=== PATIENT | female | born 1970 | race African-American/Black ===

== ENCOUNTER 2016-06-11 15:17 | Emergency (ER) | payer SELFPAY ==
[~2016-06-11] VITALS: Ht 165.1 cm; Wt 88.0 kg
[~2016-06-11 15:17] MED LIST: ASPI325T PO; CYCL-36 PO; FERR324T4 PO
[2016-06-11 15:32] VITALS: BP 112/67; PULSE 90; RESP 18; TEMP 99.8; O2SAT 100
[2016-06-11] MEDS ORDERED: FERR325T PO ×2 (16:05→18:10)
[2016-06-11 16:23] LABS: MEAN CORPUSCULAR HGB CONC 28.3 % (32.0-36.0)
[2016-06-11 16:57] LABS: POTASSIUM 4.5 MEQ/L (3.5-5.1)
[2016-06-11 16:59] LABS: BICARBONATE 24.6 MEQ/L (21.0-32.0)
--- NOTE | 2016-06-11 17:00 | PD ---
HPI Chief Complaint: Skin Problem Time Seen by Provider: 16:14 Travel History International Travel<30 days: No Contact w/Intl Traveler<30days: No Traveled to known affect area: No History of Present Illness HPI So 45-year-old presents to the emergency room complaining of pain in her left arm started yesterday. She noticed palpable tender cord in the left arm. This is been worsening since yesterday. She otherwise has felt generally well. She has a history of severe anemia from menorrhagia. She states she's been having a little bit more dyspnea on exertion and shortness of breath. She thinks is probably from her anemia. She is taking her iron. She's had a blood clot in her left arm from a previous peripheral IV. She did 6 months of warfarin and this resolved. She's never had any other DVTs or PEs. History Past Medical History Narrative Medical Severe iron deficiency anemia related to menorrhagia Anemia History left upper extremity DVT Menopausal: Yes : 8 Para: 4 Dilation and Curettage (D&C): No Social History Alcohol Use: Yes (WEEKLY) Tobacco Use: Yes ( 1/2 pack a day for 32 years) Allergies-Medications (Allergen,Severity, Reaction): Coded Allergies: Cat Dander (Verified Allergy, Severe, Itching, 06/11/16) Codeine (Verified Allergy, Severe, Twitching, 06/11/16) Hydrocodone (Verified Allergy, Intermediate, itching, 06/11/16) Reported Meds & Prescriptions Reported Meds & Active Scripts Active Reported Ferrous Sulfate 325 Mg Tab 325 Mg PO DAILY Review of Systems Except as stated in HPI: all other systems reviewed are Neg Physical Exam Narrative GENERAL: Well-appearing 45-year-old woman, no acute distress. SKIN: Warm and dry. HEAD: Atraumatic. Normocephalic. EYES: Pupils equal and round. No scleral icterus. No injection or drainage. Marked conjunctival pallor. ENT: No nasal bleeding or discharge. Mucous membranes pink and moist. NECK: Trachea midline. No JVD. CARDIOVASCULAR: Regular rate and rhythm. No murmur appreciated. RESPIRATORY: No accessory muscle use. Clear to auscultation. Breath sounds equal bilaterally. GASTROINTESTINAL: Abdomen soft, non-tender, nondistended. Hepatic and splenic margins not palpable. MUSCULOSKELETAL: No obvious deformities. No obvious edema. She does have a tender palpable cord along the medial arm. NEUROLOGICAL: Awake and alert. No obvious cranial nerve deficits. Motor grossly within normal limits. Normal speech. PSYCHIATRIC: Appropriate mood and affect; insight and judgment normal. Data Data Last Documented VS Vital Signs Date Time Temp Pulse Resp B/P Pulse Ox O2 Delivery O2 Flow Rate FiO2 06/11/16 15:32 99.8 90 18 112/67 100 Orders Us Arm Venous Doppler (06/11/16 ) Complete Blood Count With Diff (06/11/16 16:22) Basic Metabolic Panel (Bmp) (06/11/16 16:22) Iv Access Insert/Monitor (06/11/16 16:22) Iron Sucrose Inj (Venofer Inj) (06/11/16 18:15) Labs Laboratory Tests Test 06/11/16 16:30 White Blood Count 4.4 TH/MM3 Red Blood Count 4.26 MIL/MM3 Hemoglobin 6.1 GM/DL Hematocrit 21.5 % Mean Corpuscular Volume 50.6 FL Mean Corpuscular Hemoglobin 14.3 PG Mean Corpuscular Hemoglobin 28.3 % Concent Red Cell Distribution Width 25.9 % Platelet Count 442 TH/MM3 Mean Platelet Volume 7.1 FL Neutrophils (%) (Auto) % CBC Comment AUTO DIFF Differential Total Cells 100 Counted Neutrophils % (Manual) 52 % Lymphocytes % 41 % Monocytes % 4 % Eosinophils % 2 % Basophils % 1 % Neutrophils # (Manual) 2.3 TH/MM3 Differential Comment FINAL DIFF MANUAL Platelet Estimate NORMAL Platelet Morphology Comment NORMAL Ovalocytes 1+ Sodium Level 141 MEQ/L Potassium Level 4.5 MEQ/L Chloride Level 110 MEQ/L Carbon Dioxide Level 24.6 MEQ/L Anion Gap 6 MEQ/L Blood Urea Nitrogen 13 MG/DL Creatinine 1.10 MG/DL Estimat Glomerular Filtration 65 ML/MIN Rate Random Glucose 91 MG/DL Calcium Level 8.0 MG/DL [facility] Medical Decision Making Medical Screen Exam Complete: Yes Emergency Medical Condition: Yes Interpretation(s) Ultrasound: Nonocclusive thrombus in the basilic vein. Labs: Hemoglobin 6.1. Differential Diagnosis DVT, chronic DVT, thrombophlebitis, menorrhagia, anemia, other Narrative Course Medical decision making INITIAL: 45-year-old woman with what seems to be thrombophlebitis in her basilic vein, make we'll possibly DVT, as well as marked anemia. We'll check labs, ultrasound, reassess. FINAL: Ultrasounds was nonocclusive superficial vein thrombosis. Recommend warm compresses. Full dose aspirin daily. He was 6.1 and patient with very chronic long-standing menorrhagia. She has finished her menstrual cycle 2 days ago. She is taking iron. Discussed transfusion versus IV iron versus by mouth iron. Patient is having some symptoms of lightheadedness and dyspnea on exertion. She is not bleeding now. Offered IV iron transfusion, continue oral iron. Thing to stay safest with way to go. Diagnosis Primary Impression: Anemia due to blood loss Additional Impression: Superficial venous thrombosis of arm Qualified Code: I82.612 - Superficial venous thrombosis of arm, left Additional Instructions: Continue iron 325 mg twice daily. Follow up with her primary doctor in the next one to 2 weeks. Use warm compresses to the area that sore on your arm. Take a full dose aspirin daily until you follow up with her primary doctor. Med/Other Pt SpecificInfo: Prescription(s) given Scripts Aspirin 325 Mg [id number] Mg PO DAILY #30 TAB Ref 0 Prov:Adolfo Ferguson MD 06/11/16 Ferrous Sulfate 325 Mg [id number] Mg PO BID 30 Days Ref 0 Prov:Adolfo Ferguson MD 06/11/16 Disposition: 01 DISCHARGE HOME Condition: Stable Adolfo Ferguson MD Jun 11, 2016 17:00
[2016-06-11 17:04] LABS: HEMATOCRIT 21.5 % (35.0-46.0); MEAN CELL VOLUME 50.6 FL (80.0-100.0); MEAN CORPUSCULAR HEMOGLOBIN 14.3 PG (27.0-34.0); PLATELET COUNT 442 TH/MM3 (150-450); RED BLOOD COUNT 4.26 MIL/MM3 (4.00-5.30); RED CELL DISTRIBUTION WIDTH 25.9 % (11.6-17.2); WHITE BLOOD COUNT 4.4 TH/MM3 (4.0-11.0)
[2016-06-11 17:08] LABS: HEMO FLAGS AUTO DIFF
[2016-06-11 17:47] LABS: BASOPHILS 1 % (0-2); EOSINOPHILS 2 % (0-4); NEUTROPHIL # MANUAL DIFF 2.3 TH/MM3 (1.8-7.7); OVALOCYTES 1+ (NORMAL); PLATELET ESTIMATE SMEAR NORMAL (NORMAL); PLATELET MORPHOLOGY NORMAL (NORMAL); POLYS (SEG NEUTROPHILS) 52 % (16-70); SCAN/DIFF FINAL DIFF MANUAL; WBC DIFF SAMPLE 100
--- NOTE | 2016-06-11 17:54 | RADHPO ---
EXAM DATE/TIME: 06/11/2016 17:27 [facility] COMPARISON: US ARM LEFT VENOUS DOPPLER, July 23, 2015, 9:46. INDICATIONS : Pain in left upper extremity. MEDICAL HISTORY : Uterine Fibroids. Hypertension. Asthma. Chronic anemia. SURGICAL HISTORY : Tonsillectomy. Tubal ligation. Oral surgery. Jn Angina surgery. ENCOUNTER: Subsequent ACUITY: 1 day PAIN SCORE: 5/10 LOCATION: Left arm. FINDINGS: There is nonocclusive thrombus in the left basilic vein. There is spontaneous flow documented in the brachial, cephalic, axillary, and subclavian veins. The vessels are compressible and augmentation r esponse is documented. No filling defects are seen. The flow is phasic with respiration. Direction of flow in the jugular vein is caudal. CONCLUSION: Nonocclusive thrombus in the left basilic vein. The remaining veins in the left upper extremity are p atent. Eyal Fox MD on June 11, 2016 at 17:51 Board Certified Radiologist. This report was verified electronically.
[2016-06-11] MEDS ORDERED: ASPI325T PO (18:10)
[2016-06-11 18:15] VITALS: BP 127/83; PULSE 88; RESP 16; O2SAT 99
[2016-06-11] MEDS ORDERED: IRON SUCROSE INJ 200 MG in SODIUM CHLORIDE 0.9% INJ 100 ML IV ONE (18:15)
[2016-06-11 19:52] VITALS: BP 130/70
== END 2016-06-11 19:54 | disposition home or self-care (01) ==
LOC: PHED 15:17
DX: D50.0 Iron deficiency anemia secondary to blood loss (chronic) (principal); I82.612 Acute embolism and thrombosis of superficial veins of left upper extremity
CPT/HCPCS: 80048; 85007; 85027; 93971; 96365; 99284; J1756

== ENCOUNTER 2016-09-26 17:35 | Emergency (ER) | payer SELFPAY ==
[~2016-09-26 17:35] MED LIST changes: -CYCL-36 PO; -FERR324T4 PO; +FERR325T PO
[2016-09-26 17:37] VITALS: BP 119/70; PULSE 106; RESP 20; TEMP 98; O2SAT 100
--- NOTE | 2016-09-26 17:46 | PD ---
Physical Exam Date Seen by Provider: Sep 26, 2016 Time Seen by Provider: 17:43 Data Data Last Documented VS Vital Signs Date Time Temp Pulse Resp B/P Pulse Ox O2 Delivery O2 Flow Rate FiO2 09/26/16 17:37 98.0 106 20 119/70 100 Room Air MDM Supervised Visit with LISET: No Narrative Course 46 YO right hand dominant F with complaint of pain and swelling of the inner aspect of the right elbow x ~36 hours. Denies known injury. Takes an ASA daily. Vitals reviewed. Patient seen in triage, awaiting bed placement. Portia Liriano Sep 26, 2016 17:46
[2016-09-26] MEDS ORDERED: FERR324T4 PO (17:57)
[2016-09-26 18:10] LABS: MEAN CORPUSCULAR HGB CONC 24.2 % (32.0-36.0)
[2016-09-26 18:23] LABS: BASOPHIL # 0.1 TH/MM3 (0-0.2); BASOPHIL % 1.2 % (0.0-2.0); EOSINOPHIL # 0.3 TH/MM3 (0-0.4); EOSINOPHIL % 2.3 % (0.0-4.0); HEMATOCRIT 25.6 % (35.0-46.0); LYMPH % 17.9 % (9.0-44.0); MEAN CELL VOLUME 50.2 FL (80.0-100.0); MEAN CORPUSCULAR HEMOGLOBIN 12.1 PG (27.0-34.0); MONO % 8.4 % (0.0-8.0); NEUT % 70.2 % (16.0-70.0); PLATELET COUNT 416 TH/MM3 (150-450); RED BLOOD COUNT 5.09 MIL/MM3 (4.00-5.30); RED CELL DISTRIBUTION WIDTH 26.1 % (11.6-17.2); WHITE BLOOD COUNT 11.3 TH/MM3 (4.0-11.0)
[2016-09-26 18:26] LABS: HEMO FLAGS AUTO DIFF
--- NOTE | 2016-09-26 18:51 | PD ---
HPI Chief Complaint: Medical Clearance Time Seen by Provider: 17:57 Travel History International Travel<30 days: No Contact w/Intl Traveler<30days: No Traveled to known affect area: No History of Present Illness HPI The patient was seen and examined in the presence of the nurse. This patient complains of 2 things. She has long-standing chronic severe anemia and is on iron therapy. She wanted her hemoglobin checked. She doesn't have insurance and never goes to a doctor and just comes to the ER when she has a medical issue. She also complains of a tender area in her right arm. No injury. She' s had superficial thrombosis in the past. She takes aspirin daily. Symptoms severity is mild to moderate. No alleviating factors. Duration 2 days regarding the arm pain PFSH Past Medical History AAA: No ADD: No ADHD: No Anemia: Yes Asthma: Yes (allergy related / allergic to cats ) Heart Rhythm Problems: No Cancer: No Cardiovascular Problems: Yes ("pooja angina sugery" ) High Cholesterol: No Chest Pain: No Cerebrovascular Accident: No Diminished Hearing: No Deep Vein Thrombosis: Yes (hx of (Left arm)) Endocrine: No Gastrointestinal Disorders: Yes Genitourinary: No Headaches: Yes Hypertension: Yes Immune Disorder: No Implanted Vascular Access Dvce: No Musculoskeletal: No Neurologic: Yes Psychiatric: No Reproductive: Yes ("fibroid cysts", heavy/large clotting while mesturating) Respiratory: No Migraines: Yes Seizures: No Sleep Apnea: No Tetanus Vaccination: > 5 Years Influenza Vaccination: No ?: Not Menopausal: Yes : 8 Para: 4 : 4 Ectopic : No Ovarian Cysts: Yes (fibroids on uterus) Dilation and Curettage (D&C): No Tubal Ligation: Yes (2000) Past Surgical History Abdominal Surgery: No AICD: No Cardiac Surgery: No Section: No Ear Surgery: No Endocrine Surgery: No Eye Surgery: No Genitourinary Surgery: No Gynecologic Surgery: Yes Hysterectomy: No Neurologic Surgery: No Oral Surgery: Yes Thoracic Surgery: No Tonsillectomy: Yes (1977) Other Surgery: Yes (pooja angina) Social History Alcohol Use: Yes (WEEKLY) Tobacco Use: Yes ( 1/2 pack a day for 32 years) Substance Use: No (PT DENIES) Allergies-Medications (Allergen,Severity, Reaction): Coded Allergies: Cat Dander (Verified Allergy, Severe, Itching, 09/26/16) Codeine (Verified Allergy, Severe, Twitching, 09/26/16) Hydrocodone (Verified Allergy, Intermediate, itching, 09/26/16) Reported Meds & Prescriptions Reported Meds & Active Scripts Active Aspirin 325 Mg Tab 325 Mg PO DAILY Reported Ferrous Sulfate DR (Ferrous Sulfate) 324 Mg Tabdr 325 Mg PO DAILY Review of Systems General / Constitutional: No: Fever Eyes: No: Visual changes HENT: No: Headaches Cardiovascular: No: Chest Pain or Discomfort Respiratory: No: Shortness of Breath Gastrointestinal: No: Abdominal Pain Genitourinary: Positive: Menorrhagia, No: Dysuria Musculoskeletal: Positive: Pain Skin: No Rash Neurologic: No: Weakness Psychiatric: No: Depression Endocrine: No: Polydipsia Hematologic/Lymphatic: No: Easy Bruising Physical Exam Narrative GENERAL: Well-nourished, well-developed patient in no apparent distress. SKIN: Focused skin assessment reveals no rash and nodules. Skin is Warm and dry. HEAD: Atraumatic. Normocephalic. EYES: Pupils equal and round. No scleral icterus. No injection or drainage. ENT: No nasal bleeding or discharge. Mucous membranes pink and moist. NECK: Trachea midline. No JVD. CARDIOVASCULAR: Regular rate and rhythm. No murmur appreciated. RESPIRATORY: No accessory muscle use. Clear to auscultation. Breath sounds equal bilaterally. GASTROINTESTINAL: Abdomen soft, non-tender, nondistended. Hepatic and splenic margins not palpable. MUSCULOSKELETAL: No obvious deformities. No clubbing. No cyanosis. No edema. Patient has a distinct tender palpable cord near the lateral epicondyle it's consistent with a superficial venous thrombosis. NEUROLOGICAL: Awake and alert. No obvious cranial nerve deficits. Motor grossly within normal limits. Normal speech. PSYCHIATRIC: Appropriate mood and affect; insight and judgment normal. Data Data Last Documented VS Vital Signs Date Time Temp Pulse Resp B/P Pulse Ox O2 Delivery O2 Flow Rate FiO2 09/26/16 17:59 98 17 09/26/16 17:37 98.0 119/70 100 Room Air Orders Complete Blood Count With Diff (09/26/16 18:09) Iv Access Insert/Monitor (09/26/16 18:09) Labs Laboratory Tests Test 09/26/16 18:10 White Blood Count 11.3 TH/MM3 Red Blood Count 5.09 MIL/MM3 Hemoglobin 6.2 GM/DL Hematocrit 25.6 % Mean Corpuscular Volume 50.2 FL Mean Corpuscular Hemoglobin 12.1 PG Mean Corpuscular Hemoglobin 24.2 % Concent Red Cell Distribution Width 26.1 % Platelet Count 416 TH/MM3 Mean Platelet Volume 8.4 FL Neutrophils (%) (Auto) 70.2 % Lymphocytes (%) (Auto) 17.9 % Monocytes (%) (Auto) 8.4 % Eosinophils (%) (Auto) 2.3 % Basophils (%) (Auto) 1.2 % Neutrophils # (Auto) 8.0 TH/MM3 Lymphocytes # (Auto) 2.0 TH/MM3 Monocytes # (Auto) 0.9 TH/MM3 Eosinophils # (Auto) 0.3 TH/MM3 Basophils # (Auto) 0.1 TH/MM3 CBC Comment AUTO DIFF MDM Medical Decision Making Medical Screen Exam Complete: Yes Emergency Medical Condition: Yes Medical Record Reviewed: Yes Differential Diagnosis DVT, superficial thrombosis, soft tissue injury Narrative Course I have reviewed the patient's electronic medical record. Patient's last hemoglobin here was 6.1 which was 4 months ago CBC today reveals a hemoglobin of 6.2, essentially stable She is not bleeding today She is on iron therapy Her right arm exam reveals a superficial venous thrombosis. We discussed ways to help with this including warm compresses and anti-inflammatories. She will be cautious for any bleeding especially on aspirin therapy. The patient was advised to follow up with their physician and return if they worsen. Diagnosis Primary Impression: Superficial venous thrombosis of arm Qualified Code: I82.611 - Superficial venous thrombosis of arm, right Additional Impression: Anemia Qualified Code: D64.9 - Anemia, unspecified type Additional Instructions: The patient was advised to follow up with their physician and return if they worsen. Med/Other Pt SpecificInfo: Other Disposition: 01 DISCHARGE HOME Condition: Stable Zain Maurice MD Sep 26, 2016 18:51
[2016-09-26 19:00] VITALS: BP 122/77; TEMP 97.8
[2016-09-26 19:27] LABS: KERATOCYTES 1+ (NORMAL); OVALOCYTES 1+ (NORMAL); PLATELET ESTIMATE SMEAR NORMAL (NORMAL); PLATELET MORPHOLOGY NORMAL (NORMAL); SCAN/DIFF AUTO DIFF CONFIRMED; TARGET CELLS 1+ (NORMAL); TEARDROP RBCS 1+ (NORMAL)
== END 2016-09-26 19:20 | disposition home or self-care (01) ==
LOC: NEPC 17:35
DX: I82.611 Acute embolism and thrombosis of superficial veins of right upper extremity (principal); D64.9 Anemia, unspecified
CPT/HCPCS: 85025; 99283

== ENCOUNTER 2016-09-28 14:58 | Inpatient (IN) | payer SELFPAY ==
[~2016-09-28] VITALS: Ht 165.1 cm; Wt 88.9 kg
[~2016-09-28 14:58] MED LIST changes: +FERR324T4 PO; -FERR325T PO
[2016-09-28 15:08] VITALS: BP 176/115; PULSE 98; RESP 16; TEMP 98.2; O2SAT 98
[2016-09-28 16:06] LABS: MEAN CORPUSCULAR HGB CONC 28.5 % (32.0-36.0)
[2016-09-28 16:30] LABS: AUTOMATED NEUTROPHIL # 3.3 TH/MM3 (1.8-7.7); BASOPHIL # 0.5 TH/MM3 (0-0.2); BASOPHIL % 7.4 % (0.0-2.0); HEMATOCRIT 23.3 % (35.0-46.0); LYMPH % 39.2 % (9.0-44.0); LYMPHOCYTE # 2.9 TH/MM3 (1.0-4.8); MEAN CELL VOLUME 52.4 FL (80.0-100.0); MEAN CORPUSCULAR HEMOGLOBIN 14.9 PG (27.0-34.0); MONO % 8.7 % (0.0-8.0); NEUT % 44.7 % (16.0-70.0); PLATELET COUNT 403 TH/MM3 (150-450); RED BLOOD COUNT 4.45 MIL/MM3 (4.00-5.30); RED CELL DISTRIBUTION WIDTH 34.4 % (11.6-17.2); WHITE BLOOD COUNT 7.3 TH/MM3 (4.0-11.0)
[2016-09-28] MEDS ORDERED: ACETAMINOPHEN/HYDROcodone 325 MG/5 MG TAB PO ONE (16:30)
--- NOTE | 2016-09-28 16:41 | PD ---
HPI Chief Complaint: Pain: Acute or Chronic Time Seen by Provider: 15:54 Travel History International Travel<30 days: No Contact w/Intl Traveler<30days: No Traveled to known affect area: No History of Present Illness HPI So 46-year-old woman who presents to the emergency department complaining of bilateral arm pain and swelling. Patient has a history of severe anemia related to menorrhagia. This is been ongoing for some time. She reports that it's never been "life-threatening" and so she's never had any she is uninsured and so she's never had any interventions for the menorrhagia. She's been transfused multiple times in the past. She's also one previous episode of left basilic/cephalic upper extremity thrombosis. She was treated with warfarin for 6 months. She has completed that. She was seen 2 days ago with right upper extremity pain tenderness and swelling and palpable cord in the arm and was diagnosed with superficial thrombophlebitis. Was instructed to use NSAIDs and warm compresses. She states she's had worsening pain in the right arm and then over the past day or 2 as develop worsening similar symptoms in the left arm in the same area. She states since her previous clot she's not had any similar episodes. She thinks her mom may have had blood clots in the past but she is not sure. No history of lower extremity DVTs. No other complaints. History Past Medical History Narrative Medical Anemia Heavy menstrual cycles Tetanus Vaccination: > 5 Years Influenza Vaccination: No LMP: TL- 5 DAYS AGO Menopausal: Yes : 8 Para: 4 Dilation and Curettage (D&C): No Social History Alcohol Use: Yes (WEEKLY) Tobacco Use: Yes ( 1/2 pack a day for 32 years) Allergies-Medications (Allergen,Severity, Reaction): Coded Allergies: Cat Dander (Verified Allergy, Severe, Itching, 09/28/16) Codeine (Verified Allergy, Severe, Twitching, 09/28/16) Hydrocodone (Verified Allergy, Intermediate, itching, 09/28/16) Reported Meds & Prescriptions Reported Meds & Active Scripts Active Aspirin 325 Mg Tab 325 Mg PO DAILY Reported Ferrous Sulfate DR (Ferrous Sulfate) 324 Mg Tabdr 325 Mg PO DAILY Review of Systems Except as stated in HPI: all other systems reviewed are Neg Physical Exam Narrative GENERAL: Well-appearing 46 year-old woman, no acute distress. SKIN: Focused skin assessment warm/dry. HEAD: Atraumatic. Normocephalic. EYES: Pupils equal and round. No scleral icterus. No injection or drainage. ENT: No nasal bleeding or discharge. Mucous membranes pink and moist. NECK: Trachea midline. No JVD. CARDIOVASCULAR: Systolic flow murmur. Regular rate and rhythm. RESPIRATORY: No accessory muscle use. Clear to auscultation. Breath sounds equal bilaterally. GASTROINTESTINAL: Abdomen soft, non-tender, nondistended. Hepatic and splenic margins not palpable. MUSCULOSKELETAL: No obvious deformities. She has palpable cord with tenderness and warmth on the medial aspect of both forearms with some swelling towards the mid medial forearm on both sides. There is no obvious edema or are marked asymmetry at this point. NEUROLOGICAL: Awake and alert. No obvious cranial nerve deficits. Motor grossly within normal limits. Normal speech. Data Data Last Documented VS Vital Signs Date Time Temp Pulse Resp B/P Pulse Ox O2 Delivery O2 Flow Rate FiO2 09/28/16 17:58 74 18 147/62 98 Room Air 09/28/16 15:08 98.2 Orders Us Arm Venous Doppler Bilat (09/28/16 ) Complete Blood Count With Diff (09/28/16 16:05) Basic Metabolic Panel (Bmp) (09/28/16 16:05) Act Partial Throm Time (Ptt) (09/28/16 16:05) Prothrombin Time / Inr (Pt) (09/28/16 16:05) Iv Access Insert/Monitor (09/28/16 16:05) Thyroid Stimulating Hormone (09/28/16 16:05) Acetamin-Hydrocod 325-5 Mg ([place] 5-325 (09/28/16 16:30) Oxycodone-Acetamin 5-325 Mg (Percocet (09/28/16 16:45) Ondansetron Odt (Zofran Odt) (09/28/16 16:45) Iron Sucrose Inj (Venofer Inj) (09/28/16 18:45) Admit To Inpatient (09/28/16 ) Vital Signs (Adult) Q4H (09/28/16 18:41) Activity Oob Ad Mary Grace (09/28/16 18:41) Diet Regular Basic (09/28/16 Dinner) Sodium Chloride 0.9% Flush (Ns Flush) (09/28/16 18:45) Sodium Chloride 0.9% Flush (Ns Flush) (09/28/16 21:00) Acetaminophen (Tylenol) (09/28/16 18:45) Ondansetron Inj (Zofran Inj) (09/28/16 18:45) Basic Metabolic Panel (Bmp) (09/29/16 06:00) Complete Blood Count With Diff (09/29/16 06:00) Naloxone Inj (Narcan Inj) (09/28/16 18:45) Docusate Sodium-Senna (Lauren-Colace) (09/28/16 21:00) Magnesium Hydroxide Liq (Milk Of Magnesi (09/28/16 18:45) Sennosides (Senokot) (09/28/16 18:45) Bisacodyl Supp (Dulcolax Supp) (09/28/16 18:45) Lactulose Liq (Lactulose Liq) (09/28/16 18:45) Inpatient Certification (09/28/16 ) Consult Hematology (09/28/16 ) Pathologist Smear Review (09/28/16 18:41) Iron/Tibc Profile (09/28/16 18:41) Ferritin (09/28/16 18:41) Ldh Serum (09/28/16 18:41) Haptoglobin (09/28/16 18:41) Heparin Infusion [id number] (09/28/16 18:41) Heparin-D5w Inj (Heparin-D5w Inj) (09/28/16 18:45) Act Partial Throm Time (Ptt) (09/28/16 18:41) Cbc No Diff, Includes Plts (09/28/16 18:41) Cbc No Diff, Includes Plts (10/01/16 06:00) Act Partial Throm Time (Ptt) (09/29/16 01:41) Occult Blood (Hemoccult) Stool (09/28/16 18:41) Admit Order (Ed Use Only) (09/28/16 ) Labs Laboratory Tests Test 09/28/16 16:20 White Blood Count 7.3 TH/MM3 Red Blood Count 4.45 MIL/MM3 Hemoglobin 6.6 GM/DL Hematocrit 23.3 % Mean Corpuscular Volume 52.4 FL Mean Corpuscular Hemoglobin 14.9 PG Mean Corpuscular Hemoglobin 28.5 % Concent Red Cell Distribution Width 34.4 % Platelet Count 403 TH/MM3 Mean Platelet Volume 6.9 FL Neutrophils (%) (Auto) 44.7 % Lymphocytes (%) (Auto) 39.2 % Monocytes (%) (Auto) 8.7 % Eosinophils (%) (Auto) 0.0 % Basophils (%) (Auto) 7.4 % Neutrophils # (Auto) 3.3 TH/MM3 Lymphocytes # (Auto) 2.9 TH/MM3 Monocytes # (Auto) 0.6 TH/MM3 Eosinophils # (Auto) 0.0 TH/MM3 Basophils # (Auto) 0.5 TH/MM3 CBC Comment AUTO DIFF Differential Total Cells 100 Counted Neutrophils % (Manual) 49 % Lymphocytes % 36 % Monocytes % 12 % Eosinophils % 3 % Neutrophils # (Manual) 3.6 TH/MM3 Differential Comment FINAL DIFF MANUAL Prothrombin Time 10.0 SEC Prothromb Time International 0.9 RATIO Ratio Activated Partial 23.8 SEC Thromboplast Time Sodium Level 143 MEQ/L Potassium Level 4.0 MEQ/L Chloride Level 109 MEQ/L Carbon Dioxide Level 24.4 MEQ/L Anion Gap 10 MEQ/L Blood Urea Nitrogen 11 MG/DL Creatinine 0.94 MG/DL Estimat Glomerular Filtration 77 ML/MIN Rate Random Glucose 107 MG/DL Calcium Level 8.1 MG/DL Thyroid Stimulating Hormone 0.469 uIU/ML 3rd Gen [facility] Medical Decision Making Medical Screen Exam Complete: Yes Emergency Medical Condition: Yes Interpretation(s) LABS: CBC remarkable for marked anemia with microcytic indices BMP is unremarkable TSH is normal Coags are unremarkable Ultrasound bilateral upper extremities: Bilateral upper extremity clot in basilic and brachial veins. Differential Diagnosis Menorrhagia, hypothyroidism, thrombophilia, other Narrative Course Medical decision making This a 46-year-old woman presents to the emergency department with a history of marked anemia from menorrhagia. Etiology may be related to previously identified intramural fibroid seen on ultrasound in 2015. I don't see any previous thyroid testing. In 2015 she also had nonocclusive thrombus in the cephalic vein in the basilic vein. She just finished her menstrual cycle now apparently has recurrent bilateral superficial venous thrombosis with possible deeper complement. We'll check bilateral venous ultrasounds, we'll repeat blood work. Hemoglobin was 6.2 previously. She is currently taking 2 iron tablets twice daily regularly. She may have some sort of thrombophilia. We'll also check her TSH. FINAL: 46 year-old woman with menorrhagia related to intramural fibroid and marked anemia. She is 46. Her mom had a hysterectomy she's not sure so were not sure when to expect menopause. She now has upper extremity clots again for the second time. Unclear she has some sort of thrombophilia. She'll need anticoagulation and is of course at risk for worsening severe bleeding. We'll place her on heparin, we'll give her IV iron infusion. She is not bleeding now. We'll plan on admission for evaluation by hematology and gynecology. Diagnosis Primary Impression: Acute deep vein thrombosis (DVT) of both upper extremities Additional Impressions: Menorrhagia Anemia Admitting Information Admitting Physician Requests: Adolfo Mendoza MD Sep 28, 2016 16:41
[2016-09-28 16:44] LABS: BICARBONATE 24.4 MEQ/L (21.0-32.0)
[2016-09-28 16:45] LABS: APTT (PATIENT) 23.8 SEC (24.3-30.1); INTERNATIONAL NORMALIZED RATIO 0.9 RATIO
[2016-09-28] MEDS ORDERED: oxyCODONE/ACETAMINOPHEN 5 MG/325 MG TAB PO ONE (16:45)
[2016-09-28] MEDS ORDERED: ONDANSETRON ODT 4 MG TAB PO ONE (16:45)
[2016-09-28 16:49] LABS: HEMO FLAGS AUTO DIFF
[2016-09-28 17:06] LABS: EOSINOPHILS 3 % (0-4); NEUTROPHIL # MANUAL DIFF 3.6 TH/MM3 (1.8-7.7); POLYS (SEG NEUTROPHILS) 49 % (16-70); WBC DIFF SAMPLE 100
[2016-09-28 17:07] LABS: SCAN/DIFF FINAL DIFF MANUAL
[2016-09-28 17:58] VITALS: BP 147/62; PULSE 74; RESP 18; O2SAT 98
--- NOTE | 2016-09-28 18:23 | RADRPT ---
EXAM DATE/TIME: 09/28/2016 16:36 [facility] COMPARISON: No previous studies available for comparison. INDICATIONS : Bilateral arm swelling. MEDICAL HISTORY : Hypertension. Chronic obstructive pulmonary disease. Headache. Migraine. Deep vein thrombosis. As thma. Dyspnea. Ovarian cyst. SURGICAL HISTORY : Tonsillectomy.Tubal ligation. ENCOUNTER: Initial ACUITY: 1 week PAIN SCORE: 8/10 LOCATION: Bilateral arms. FINDINGS: RIGHT UPPER EXTREMITY: There is nonocclusive thrombus in the right brachial vein. There appears to be occlusive thrombus in the right basilic vein. There is spontaneous flow documented in the cephalic, axillary, and subclavia n veins. Direction of flow in the jugular vein is caudal. LEFT UPPER EXTREMITY: There is nonocclusive thrombus in the left brachial vein. There appears to be occlusive thrombus in t he left basilic vein. There is spontaneous flow documented in the cephalic, axillary, and subclavian veins. Direction of flow in the jugular vein is caudal. CONCLUSION: Thrombus in the brachial and basilic veins bilaterally. Eyal Fox MD on September 28, 2016 at 18:18 Board Certified Radiologist. This report was verified electronically.
[2016-09-28] MEDS ORDERED: SENNOSIDES 8.6 MG TAB PO PRN (18:45)
[2016-09-28] MEDS ORDERED: BISACODYL 10 MG SUPP RECTAL PRN (18:45)
[2016-09-28] MEDS ORDERED: IRON SUCROSE INJ 200 MG in SODIUM CHLORIDE 0.9% INJ 100 ML IV ONE (18:45)
[2016-09-28] MEDS ORDERED: MAGNESIUM HYDROXIDE SUSP 30 ML CUP PO PRN (18:45)
[2016-09-28] MEDS ORDERED: ONDANSETRON HCL 4 MG/2 ML VIAL IVP PRN (18:45)
[2016-09-28] MEDS ORDERED: ACETAMINOPHEN 325 MG TAB PO PRN (18:45)
[2016-09-28] MEDS ORDERED: SODIUM CHLORIDE 0.9% FLUSH 10 ML FLUSH IV FLUSH PRN (18:45)
[2016-09-28] MEDS ORDERED: NALOXONE HCL 0.4 MG/ML AMP IV PRN (18:45)
[2016-09-28 19:09] VITALS: BP 155/73; PULSE 74; RESP 18; O2SAT 97
[2016-09-28] MEDS: SODIUM CHLORIDE 0.9% FLUSH 10 ML FLUSH IV FLUSH SCH (19:23)
[2016-09-28 20:05] LABS: LDH SERUM 248 U/L (84-246); TRANSFERRIN IRON PROFILE 346 MG/DL (200-360)
[2016-09-28 20:08] LABS: FERRITIN 7 NG/ML (8-252)
[2016-09-28] MEDS: HEPARIN-D5W INJ 250 ML IV SCH (21:04)
[2016-09-28 21:07] LABS: MEAN CORPUSCULAR HGB CONC 27.6 % (32.0-36.0)
[2016-09-28 21:15] VITALS: BP 149/89; PULSE 63; RESP 18; TEMP 96.5; O2SAT 100
[2016-09-28 21:24] VITALS: BP_SYST 146; BP_DIAS 0; BP_DIAS 80; PULSE 67; RESP 16; O2SAT 96
[2016-09-28] MEDS: DOCUSATE SODIUM 50 MG/SENNA 8.6 MG TAB PO SCH (22:02)
[2016-09-28] MEDS ORDERED: TEMAZEPAM 7.5 MG CAP PO ONE (22:45)
[2016-09-28] MEDS: oxyCODONE/ACETAMINOPHEN 5 MG/325 MG TAB PO PRN (23:02)
--- NOTE | 2016-09-28 23:49 | HHI.HP ---
HPI Service [facility] Primary Care Physician No Primary Care Physician Admission Diagnosis bilateral upper extremity DVT, anemia Diagnoses: Chief Complaint: Both arms pain and swelling. Travel History International Travel<30 Days: No Contact w/Intl Traveler <30 Da: No Traveled to Known Affected Are: No History of Present Illness This is a delayed entry. Patient was seen around 7pm on 09/28/2016. Ms. Lyle is a pleasant 46 year old female with history of menometrorrhagia, iron deficiency anemia, upper extremity thrombosis who presents to the ED on 09/28/2016 due to bilateral arm pain and swelling. On Tuesday or Tuesday (09/25 or 09/26/2016), patient noticed right upper ext superficial thrombophlebitis. She was advised to apply warm compression and use NSAIDs. However, she started having worsening pain on both upper extremities above elbow. She reports no chest pain, shortness of breath, fever, or chills. She was previously treated with warfarin for 6 months for left basilic/cephalic upper ext thrombosis. She reports no history of PE or lower ext DVT. Denies recent surgery, long distance travel or any history of cancer. ED workup on 2016 indicates bilateral upper ext DVT in the basilic and brachial veins. Additionally, patient's hemoglobin was 6.6. However, she reports no fatigue, chest pain, shortness of breath. She normally has low hemoglobin. She is taking Iron supplements twice a day with vitamin C. However, she does not follow up with any physician due to lack of insurance. Patient denies any hematemesis or hematochezia. Her stool is dark due to iron supplement. However, stool is formed and not like tar. She has a long history of menometrorrhagia. She has not been evaluated by any Lathe Machinist with regards to her menometrorrhagia. Review of Systems Except as stated in HPI: all other systems reviewed are Neg Past Family Social History Past Medical History Menometrorrhagia Iron deficiency anemia Upper extremity DVT Past Surgical History Surgery due to Jn's angina Tonsillectomy Tubal Ligation Reported Medications Aspirin 325 Mg Tab 325 Mg PO DAILY Ferrous Sulfate DR (Ferrous Sulfate) 324 Mg Tabdr 325 Mg PO DAILY Allergies: Coded Allergies: Cat Dander (Verified Allergy, Severe, Itching, 09/28/16) Codeine (Verified Allergy, Severe, Twitching, 09/28/16) Hydrocodone (Verified Allergy, Intermediate, itching, 09/28/16) Family History Patient smokes - recently about 10 cigs per 5 days. Drinks beer socially. No illicit drugs. Social History No history of sickle cell disease. Mother - Hypertension, diabetes. Physical Exam Vital Signs Vital Signs Date Time Temp Pulse Resp B/P Pulse Ox O2 Delivery O2 Flow Rate FiO2 09/28/16 21:24 67 16 146/80 96 Room Air 09/28/16 21:15 96.5 63 18 149/89 100 09/28/16 19:09 74 18 155/73 97 Room Air 09/28/16 17:58 74 18 147/62 98 Room Air 09/28/16 15:08 98.2 98 16 176/115 98 Physical Exam GENERAL: This is a well-nourished, well-developed patient, in no apparent distress. SKIN: No rashes, ecchymoses or lesions. Warm and dry. HEAD: Atraumatic. Normocephalic. No temporal or scalp tenderness. EYES: Pupils equal round and reactive. No injection or drainage. ENT: Nose without bleeding, purulent drainage or septal hematoma. Airway patent. NECK: Trachea midline. No lymphadenopathy. Supple, nontender, no meningeal signs. CARDIOVASCULAR: Regular rate and rhythm without murmurs, gallops, or rubs. No JVD. RESPIRATORY: Clear to auscultation. Breath sounds equal bilaterally. No wheezes , rales, or rhonchi. GASTROINTESTINAL: Abdomen soft, non-tender, nondistended. No guarding. MUSCULOSKELETAL: Extremities without clubbing, cyanosis, or edema. NEUROLOGICAL: Awake and alert. Cranial nerves II through XII intact. No focal neurological deficits. Normal speech. Laboratory Laboratory Tests Test 09/28/16 09/28/16 09/28/16 16:20 20:00 20:16 White Blood Count 7.3 Red Blood Count 4.45 Hemoglobin 6.6 Hematocrit 23.3 Mean Corpuscular Volume 52.4 Mean Corpuscular Hemoglobin 14.9 Mean Corpuscular Hemoglobin 28.5 Concent Red Cell Distribution Width 34.4 Platelet Count 403 Mean Platelet Volume 6.9 Neutrophils (%) (Auto) 44.7 Lymphocytes (%) (Auto) 39.2 Monocytes (%) (Auto) 8.7 Eosinophils (%) (Auto) 0.0 Basophils (%) (Auto) 7.4 Neutrophils # (Auto) 3.3 Lymphocytes # (Auto) 2.9 Monocytes # (Auto) 0.6 Eosinophils # (Auto) 0.0 Basophils # (Auto) 0.5 CBC Comment AUTO DIFF Differential Total Cells 100 Counted Neutrophils % (Manual) 49 Lymphocytes % 36 Monocytes % 12 Eosinophils % 3 Neutrophils # (Manual) 3.6 Differential Comment FINAL DIFF MANUAL Prothrombin Time 10.0 Prothromb Time International 0.9 Ratio Activated Partial 23.8 28.0 Thromboplast Time Sodium Level 143 Potassium Level 4.0 Chloride Level 109 Carbon Dioxide Level 24.4 Anion Gap 10 Blood Urea Nitrogen 11 Creatinine 0.94 Estimat Glomerular Filtration 77 Rate Random Glucose 107 Calcium Level 8.1 Iron Level 11 Total Iron Binding Capacity 484 Percent Iron Saturation 2.3 Ferritin 7 Lactate Dehydrogenase 248 Thyroid Stimulating Hormone 0.469 3rd Gen Haptoglobin 168 Result Diagram: 09/28/16 1620 09/28/16 1620 Imaging Last Impressions Upper Extremity Ultrasound 09/28/16 0000 Signed Impressions: Service Date/Time: Wednesday, September 28, 2016 16:36 - CONCLUSION: Thrombus in the brachial and basilic veins bilaterally. Eyal Fox MD Assessment and Plan Problem List: (1) Acute deep vein thrombosis (DVT) of both upper extremities ICD Code: I82.623 Status: Acute (2) Menometrorrhagia ICD Code: N92.1 Status: Acute (3) Iron deficiency anemia ICD Code: D50.9 Status: Acute Assessment and Plan Ms. Lyle, Anne-Marie is a pleasant female with a history of menometrorrhagia, previous upper ext DVT who presented to the ED due to worsening upper extremity pain and swelling. ED work up indicated bilateral upper extremity DVT. She was also found to have anemia with hemoglobin of 6.6 without any acute symptoms which indicates iron deficiency is a chronic condition likely due to menometrorrhagia. Unfortunately, patient has not been able to follow up with physicians including hematology or fishing lure assembler due to lack of insurance. - Acute deep vein thrombosis of the upper extremities - Patient has a history of upper ext DVT for which she was on warfarin for 6 months. - While 3 months of anti-coagulation would be appropriate, this is patient's second episode which appears to be unprovoked. - Patient may benefit from indefinite anticoagulation and outpatient hypercoagulable work up . - Will start heparin drip without bolus, Consult Hematology. - Chronic iron deficiency anemia - Menometrorrhagia - Iron deficiency anemia is likely due to menorrhagia. - Will order LDH, haptoglobin, Iron panels. - Since patient is asymptomatic, we will hold off transfusing PRBCs. - Iron panels later in the evening shows severe iron deficiency with increased TIBC and low iron saturation (2.3%). - Patient will likely need periodic Iron infusion due to lack of response from oral Iron supplement. - Hematology consult pending. - Gynecology consulted to get an evaluation for menometrorrhagia Full code. Heparin drip. Physician Certification 2 Midnight Certification Type: Admission for Inpatient Services Order for Inpatient Services The services are ordered in accordance with Medicare regulations or non- Medicare payer requirements, as applicable. In the case of services not specified as inpatient-only, they are appropriately provided as inpatient services in accordance with the 2-midnight benchmark. Estimated LOS (days): 2 days is the estimated time the patient will need to remain in the hospital, assuming treatment plan goals are met and no additional complications. Post-Hospital Plan: Home Rosa Velazquez DO Sep 28, 2016 23:49
[2016-09-29] VITALS (14 sets, daily range): BP systolic 132–175; BP diastolic 66–82; PULSE 52–70; RESP 15–22; TEMP 87.5–99.1; O2SAT 98–100
[2016-09-29 03:46] LABS: APTT (PATIENT) 76.2 SEC (24.3-30.1)
[2016-09-29 06:28] LABS: AUTOMATED NEUTROPHIL # 2.6 TH/MM3 (1.8-7.7); BASOPHIL # 0.2 TH/MM3 (0-0.2); BASOPHIL % 3.3 % (0.0-2.0); EOSINOPHIL # 0.3 TH/MM3 (0-0.4); LYMPH % 42.6 % (9.0-44.0); LYMPHOCYTE # 2.6 TH/MM3 (1.0-4.8); MEAN CELL VOLUME 52.8 FL (80.0-100.0); MEAN CORPUSCULAR HEMOGLOBIN 14.6 PG (27.0-34.0); MONO % 7.7 % (0.0-8.0); NEUT % 41.4 % (16.0-70.0); PLATELET COUNT 343 TH/MM3 (150-450); RED BLOOD COUNT 4.33 MIL/MM3 (4.00-5.30); RED CELL DISTRIBUTION WIDTH 34.3 % (11.6-17.2); WHITE BLOOD COUNT 6.2 TH/MM3 (4.0-11.0)
[2016-09-29 06:37] LABS: POTASSIUM 4.3 MEQ/L (3.5-5.1)
[2016-09-29 06:40] LABS: BICARBONATE 26.8 MEQ/L (21.0-32.0)
[2016-09-29 07:02] LABS: HEMATOCRIT 22.9 % (35.0-46.0); HEMO FLAGS AUTO DIFF
[2016-09-29 07:19] LABS: EOSINOPHILS 2 % (0-4); NEUTROPHIL # MANUAL DIFF 2.9 TH/MM3 (1.8-7.7); POLYS (SEG NEUTROPHILS) 46 % (16-70); WBC DIFF SAMPLE 100
[2016-09-29 07:20] LABS: KERATOCYTES OCC (NORMAL); OVALOCYTES 1+ (NORMAL)
[2016-09-29 07:21] LABS: PLATELET ESTIMATE SMEAR NORMAL (NORMAL); PLATELET MORPHOLOGY NORMAL (NORMAL); ROULEAUX PRESENT (NORMAL); SCAN/DIFF FINAL DIFF MANUAL
[2016-09-29] MEDS: oxyCODONE/ACETAMINOPHEN 5 MG/325 MG TAB PO PRN ×3 (08:14→20:16)
[2016-09-29] MEDS: DOCUSATE SODIUM 50 MG/SENNA 8.6 MG TAB PO SCH ×2 (08:15→21:24)
[2016-09-29] MEDS: SODIUM CHLORIDE 0.9% FLUSH 10 ML FLUSH IV FLUSH SCH ×2 (08:15→21:24)
--- NOTE | 2016-09-29 11:43 | PD.RAD ---
Post Procedure Progress Note Pre Procedure Diagnosis: (1) DVT of upper extremity (deep vein thrombosis) Post Procedure Diagnosis: (1) DVT of upper extremity (deep vein thrombosis) Procedure Date: Sep 29, 2016 Supervising Radiologist: Toni Jacobo Proceduralist/Assist: RT Taco(R) Anesthesia: Local Plan of Activity Patient to Unit: Nursing Unit Patient Condition: Good See PACS Report for procedural detail/treatment Central Venous Access Device Procedure 1 Right Internal Jugular Central Line Placement triple lumen Toni Jacobo MD Sep 29, 2016 11:43
[2016-09-29] MEDS ORDERED: SODIUM CHLORIDE 0.9% FLUSH 10 ML FLUSH IVF PRN (11:45)
[2016-09-29] MEDS: HEPARIN-D5W INJ 250 ML IV SCH ×3 (12:20→14:33)
[2016-09-29 13:01] LABS: APTT (PATIENT) 34.8 SEC (24.3-30.1)
--- NOTE | 2016-09-29 15:11 | HHI.PR ---
Subjective Remarks Patient reports she is feeling okay. Still having mild shortness of breath. No chest pain, no lightheadedness. Objective Vitals Vital Signs Date Time Temp Pulse Resp B/P Pulse Ox O2 Delivery O2 Flow Rate FiO2 09/29/16 14:55 97.5 67 21 141/73 100 09/29/16 14:18 98.3 63 22 175/82 100 09/29/16 13:03 60 154/67 100 09/29/16 13:00 98.5 65 18 175/72 100 09/29/16 12:46 98.4 66 18 158/69 100 09/29/16 12:22 99.1 59 15 143/66 98 09/29/16 10:04 98.0 57 18 141/68 98 09/29/16 08:35 97.2 67 15 137/73 99 09/29/16 00:00 97.2 62 18 132/72 99 09/28/16 21:24 67 16 146/80 96 Room Air 09/28/16 21:15 96.5 63 18 149/89 100 09/28/16 19:09 74 18 155/73 97 Room Air 09/28/16 17:58 74 18 147/62 98 Room Air 09/28/16 15:08 98.2 98 16 176/115 98 I/O 09/28/16 09/28/16 09/28/16 09/29/16 09/29/16 09/29/16 07:00 15:00 23:00 07:00 15:00 23:00 Intake Total 340 ml 120 ml 480 ml Output Total 0 ml Balance 340 ml 120 ml 480 ml Intake Oral 240 ml 120 ml 480 ml IV Total 100 ml Output Stool Total 0 ml # Voids 0 1 1 # Bowel Movements 0 0 Result Diagram: 09/29/16 0522 09/29/16 0522 Imaging Last Impressions Upper Extremity Ultrasound 09/28/16 0000 Signed Impressions: Service Date/Time: Wednesday, September 28, 2016 16:36 - CONCLUSION: Thrombus in the brachial and basilic veins bilaterally. Eyal Fox MD Objective Remarks GENERAL: This is a well-nourished, well-developed patient, in no apparent distress. CARDIOVASCULAR: Normal rate and regular rhythm without murmurs, gallops, or rubs. RESPIRATORY: Good respiratory efforts. Breath sounds equal and clear to auscultation bilaterally. GASTROINTESTINAL: Abdomen soft, non-tender, non-distended. Normal active bowel sounds MUSCULOSKELETAL: Extremities without cyanosis, or edema. NEURO: Alert & Oriented x4 to person, place, time, situation. Moves all ext x4 PSYCH: Appropriate mood and affect. A/P Problem List: (1) Acute deep vein thrombosis (DVT) of both upper extremities ICD Code: I82.623 Status: Acute (2) Menometrorrhagia ICD Code: N92.1 Status: Acute (3) Iron deficiency anemia ICD Code: D50.9 Status: Acute Assessment and Plan 46-year-old female with a history of menometrorrhagia, previous upper ext DVT who presented to the ED due to worsening upper extremity pain and swelling. ED work up indicated bilateral upper extremity DVT. She was also found to have anemia with hemoglobin of 6.6 without patient has known menometrorrhagia. Unfortunately, patient has not been able to follow up with physicians including hematology or educational aid due to lack of insurance. - Acute deep vein thrombosis of the upper extremities - Patient has a history of upper ext DVT for which she was on warfarin for 6 months. - While 3 months of anti-coagulation may be appropriate, this is patient's second episode which appears to be unprovoked. - Patient may benefit from indefinite anticoagulation and outpatient hypercoagulable work up . -Continue heparin drip without bolus, hematology consulted. Chronic iron deficiency anemia - May benefit from iron infusion versus oral replacement after surgery. Hematology consulted. PRBC transfusion today. Follow-up H&H. Menometrorrhagia - Given the patient's persistent anemia and recurrent DVT. She will need to be anticoagulated. AUTOMATION MECHANIC was consulted to consider hysterectomy. Full code. Heparin drip. Maria Esther Rodriguez MD Sep 29, 2016 15:11
--- NOTE | 2016-09-29 16:56 | MB ---
cc: Erika WHITE MD DATE OF CONSULTATION 09/29/2016 HISTORY OF PRESENT ILLNESS Ms. Lyle is a 46-year-old black female para 3-1-4-4 who is being seen for a DVT in the upper extremities but I am being consulted for heavy bleeding and severe anemia. The bleeding is quite heavy. She is having normal periods that are lasting 7-10 days. She is changing pads every 20 minutes when it is the heaviest. She has been having this problem for quite some time. She has never really had a workup for the menomenorrhagia, but now it is to the point where she is chronically anemic with a hemoglobin in the 6 range. She also came into the emergency room several days ago and was diagnosed with superficial thrombophlebitis, but they came back and was found to have some deep venous thrombosis of the upper extremity. She is currently on heparin and is anticoagulated. Brought her in to the hospital thinking we will go ahead and get an ultrasound All night and she was brought her into the hospital being will go ahead and get an ultrasound and possibly a D&C hysteroscope and endometrial ablation. She denies any nosebleeds, bleeding when she brushes her teeth, melena, hematochezia, hematuria or easy bruising. OB HISTORY Her past OB history she is para 3-1-4-4. She had four NSVDs without complications. CHEMICAL CHECKER HISTORY She states she had a Pap smear last year and it was normal. She has had a tubal ligation. PAST SURGICAL HISTORY Her past surgical history is remarkable for: 1. Tubal ligation. 2. Oral surgery. 3. Tonsillectomy. 4. I&D of an abscess. PAST MEDICAL HISTORY Remarkable for: 1. Chronic anemia. 2. Menometrorrhagia. SOCIAL HISTORY She uses alcohol socially. She smokes one-half pack per day. She denies any substance abuse. FAMILY HISTORY Noncontributory. MEDICATIONS Her current medication is: Iron one p.o. daily. ALLERGIES CODEINE WHICH CAUSES TWITCHING. SHE IS ALSO ALLERGIC TO CAT DANDER. REVIEW OF SYSTEMS She denies any headache or dizziness when she stands. RESPIRATORY: She is having some mild shortness of breath, especially when moving around a lot. CARDIOVASCULAR: She denies any chest pain or chest pressure. GASTROINTESTINAL: She denies any melena, hematochezia, diarrhea, constipation. GENITOURINARY: She states she has very heavy periods which totally drain her. She denies any micturition problems or hematuria. NEUROLOGIC: She is awake and alert. She is without any problems. PSYCHIATRIC: She has appropriate mood and affect. PHYSICAL EXAMINATION GENERAL: Reveals a well-nourished, well-developed female in no acute distress, resting comfortably on the gurney. VITAL SIGNS: Her blood pressure is 141/73. Her pulse oximetry is 100%. Her respiratory rate is 21. Her pulse is 67. Her temperature is 97.5. HEENT: Normocephalic, atraumatic. Her conjunctiva are very pale. In general she looks pale. CHEST: Her chest is clear to auscultation. CARDIOVASCULAR: Her heart has regular rate and rhythm without significant murmur. ABDOMEN: Her abdomen is soft and nontender. There is no hepatosplenomegaly. There are no masses. PELVIC: The pelvic exam external genitalia is normal. The vagina is clean without lesions. The cervix was not visualized but there is no cervical motion tenderness. The uterus is normal size, shape and consistency and freely mobile. The adnexa was negative for masses. EXTREMITIES: No clubbing, cyanosis or edema. ASSESSMENT/PLAN 1. Menomenorrhagia. I looked at her records back at least to 2013. She has been severely anemic since then. She has had this heavy bleeding but not had it addressed. I would take the liberty to order an ultrasound and if that is normal I would strongly consider taking her to the operating room for a D&C, hysteroscopic exam and endometrial ablation. I am unsure at this time whether we need to stop the heparin for such a minor procedure but I will look into that. We will follow up later today and check her ultrasound. 2. Deep venous thrombosis. I will talk to the oncologist in the very near future about this, whether it is safe for her to go off heparin for a couple of hours or not. I did not see a bleeding diathesis workup in the charts previously, however, it is certainly may be there. 3. Status post D&C in March of 2015. Pathology is negative. I think our best bet at this time is to take her to the operating room for a repeat D&C, hysteroscopy and strongly consider endometrial ablation. R. Eyal White MD RJV/KK /4:01 PM 4:25 PM
[2016-09-29 21:07] LABS: MEAN CORPUSCULAR HGB CONC 27.2 % (32.0-36.0)
--- NOTE | 2016-09-29 21:20 | RADRPT ---
EXAM DATE/TIME: 09/29/2016 20:18 [facility] COMPARISON: US PELVIS - COMPLETE (CHILI POWDER MIXER,NON-PREG), March 19, 2015, 16:17. INDICATIONS : Heavy bleeding. MEDICAL HISTORY : Deep venous thrombosis. Spine deterioration. Disk degeneration. Fibroids. Menorrhagia. Asthma. SURGICAL HISTORY : Tubal ligation. Tonsillectomy. Jn angina. ENCOUNTER: Initial ACUITY: 3 months PAIN SCORE: 0/10 LOCATION: Bilateral pelvis MEASUREMENTS: UTERUS: 10.3 x 6.5 x 6.5 cm ENDOMETRIAL STRIPE: 3 mm LEFT OVARY: 2.9 x 2.1 x 1.7 cm FINDINGS: There is a 6.9 x 5 x 5.2 cm solid mass in the uterine fundus characteristic of fibroid which is incre ased from previous measurement of 4.8 x 3.8 x 4 cm in February 2015. There is a 1.1 cm left ovarian cyst. Right ovary not visualized. No free fluid. CONCLUSION: 1. 6.9 cm uterine fibroid, increased in size from comparison exam in February 2015. 2. Small left ovarian cyst. Right ovary not visualized. Colin Davis MD on September 29, 2016 at 21:15 Board Certified Radiologist. This report was verified electronically.
[2016-09-29] MEDS: ZOLPIDEM TARTRATE 5 MG TAB PO PRN (21:25)
[2016-09-30] VITALS: BP 146/86; PULSE 71; RESP 17; TEMP 97.3; O2SAT 99
[2016-09-30] MEDS: oxyCODONE/ACETAMINOPHEN 5 MG/325 MG TAB PO PRN ×4 (00:10→21:37)
[2016-09-30] MEDS: SODIUM CHLORIDE 0.9% FLUSH 10 ML FLUSH IV FLUSH SCH ×2 (00:12→09:00)
[2016-09-30 03:08] LABS: APTT (PATIENT) 57.4 SEC (24.3-30.1)
[2016-09-30 04:00] VITALS: BP 98/71; PULSE 61; RESP 17; TEMP 96.5; O2SAT 98
[2016-09-30 05:41] LABS: HEMATOCRIT 31.6 % (35.0-46.0); MEAN CELL VOLUME 55.7 FL (80.0-100.0); MEAN CORPUSCULAR HEMOGLOBIN 15.1 PG (27.0-34.0); PLATELET COUNT 622 TH/MM3 (150-450); RED BLOOD COUNT 5.67 MIL/MM3 (4.00-5.30); RED CELL DISTRIBUTION WIDTH 39.2 % (11.6-17.2); WHITE BLOOD COUNT 9.3 TH/MM3 (4.0-11.0)
[2016-09-30 05:49] LABS: REVIEW FLAG FINAL
[2016-09-30 06:00] LABS: BICARBONATE 29.3 MEQ/L (21.0-32.0); POTASSIUM 4.5 MEQ/L (3.5-5.1)
[2016-09-30 08:00] VITALS: BP 157/83; PULSE 59; RESP 16; TEMP 96.6; O2SAT 100
--- NOTE | 2016-09-30 08:12 | HHI.PR ---
Subjective Remarks Follow-up for bilateral upper extremity DVT, iron deficiency anemia, menometrorrhagia. Patient is currently doing well. Denies any chest pain, shortness of breath, fever or chills. Patient was transferred from [place] to [facility] for possible D&C by CAUSTIC STRENGTH INSPECTOR. Objective Vitals Vital Signs Date Time Temp Pulse Resp B/P Pulse Ox O2 Delivery O2 Flow Rate FiO2 09/30/16 08:00 96.6 59 16 157/83 100 09/30/16 04:00 96.5 61 17 98/71 98 09/30/16 00:00 97.3 71 17 146/86 99 09/29/16 20:00 97.5 70 17 143/72 99 09/29/16 16:57 87.5 68 18 139/74 98 09/29/16 16:47 97.1 65 18 141/78 98 09/29/16 16:00 98.0 52 18 152/77 100 09/29/16 14:55 97.5 67 21 141/73 100 09/29/16 14:18 98.3 63 22 175/82 100 09/29/16 13:03 60 154/67 100 09/29/16 13:00 98.5 65 18 175/72 100 09/29/16 12:46 98.4 66 18 158/69 100 09/29/16 12:22 99.1 59 15 143/66 98 09/29/16 10:04 98.0 57 18 141/68 98 09/29/16 08:35 97.2 67 15 137/73 99 I/O 09/29/16 09/29/16 09/29/16 09/30/16 09/30/16 09/30/16 07:00 15:00 23:00 07:00 15:00 23:00 Intake Total 120 ml 480 ml 600 ml Output Total 0 ml Balance 120 ml 480 ml 600 ml Intake Oral 120 ml 480 ml 600 ml Output Stool Total 0 ml # Voids 1 1 2 # Bowel Movements 0 Result Diagram: 09/30/16 0500 09/30/16 0500 Imaging Last Impressions Pelvis Ultrasound 09/29/16 0000 Signed Impressions: Service Date/Time: Thursday, September 29, 2016 20:18 - CONCLUSION: 1. 6.9 cm uterine fibroid, increased in size from comparison exam in February 2015. 2. Small left ovarian cyst. Right ovary not visualized. Colin Davis MD Upper Extremity Ultrasound 09/28/16 0000 Signed Impressions: Service Date/Time: Wednesday, September 28, 2016 16:36 - CONCLUSION: Thrombus in the brachial and basilic veins bilaterally. Eyal Fox MD Objective Remarks GENERAL: Alert, oriented 3, NAD. SKIN: Warm and dry. HEAD: Normocephalic. EYES: No scleral icterus. No injection or drainage. NECK: Supple, trachea midline. No JVD or lymphadenopathy. CARDIOVASCULAR: Regular rate and rhythm without murmurs, gallops, or rubs. RESPIRATORY: Breath sounds equal bilaterally. No accessory muscle use. GASTROINTESTINAL: Abdomen soft, non-tender, nondistended. MUSCULOSKELETAL: No cyanosis, or edema. BACK: Nontender without obvious deformity. No CVA tenderness. Procedures None A/P Problem List: (1) Acute deep vein thrombosis (DVT) of both upper extremities ICD Code: I82.623 Status: Acute (2) Menometrorrhagia ICD Code: N92.1 Status: Acute (3) Iron deficiency anemia ICD Code: D50.9 Status: Acute Assessment and Plan 46-year-old female with a history of menometrorrhagia, previous upper ext DVT who presented to the ED due to worsening upper extremity pain and swelling. ED work up indicated bilateral upper extremity DVT. She was also found to have anemia with hemoglobin of 6.6 without patient has known menometrorrhagia. Unfortunately, patient has not been able to follow up with physicians including hematology or head silverman due to lack of insurance. - Acute deep vein thrombosis of the upper extremities - Patient has a history of upper ext DVT for which she was on warfarin for 6 months. - Discussed with Dr. Chau (Hematology) who recommends heparin for now then oral anticoagulants for 3 months then chronic therapy with half the dose of oral anticoagulant. Chronic iron deficiency anemia - Patient received 2 units of PRBCs. Hematology recommends IV iron infusion. Menometrorrhagia - Given the patient's persistent anemia and recurrent DVT. She will need to be anticoagulated. - CAUSTIC STRENGTH INSPECTOR is considering D&C, possibly today or tomorrow. Full code. Heparin drip. Discussed with Dr. Chau and Dr. White. Rosa Velazquez DO Sep 30, 2016 8:12 am
[2016-09-30] MEDS: DOCUSATE SODIUM 50 MG/SENNA 8.6 MG TAB PO SCH ×2 (09:00→21:36)
[2016-09-30] MEDS: SODIUM CHLORIDE 0.9% FLUSH 10 ML FLUSH IVF SCH (09:00)
[2016-09-30] MEDS ORDERED: ONDANSETRON HCL 4 MG/2 ML VIAL IV PUSH ONE (09:30)
[2016-09-30] MEDS ORDERED: PROPOFOL 200 MG/20 ML AMP IV ONE (09:30)
[2016-09-30] MEDS ORDERED: PHENYLEPH/NS 1000 MCG/10 ML SYR IV ONE (09:30)
[2016-09-30] MEDS ORDERED: LACTATED RINGER'S 1000 ML INJ 1,000 ML IV ONE (09:31)
[2016-09-30] MEDS: HEPARIN-D5W INJ 250 ML IV SCH (10:01)
--- NOTE | 2016-09-30 10:53 | MB ---
cc: OTONIEL DANIELLE DATE OF CONSULTATION: 09/30/2016 REASON FOR CONSULTATION 1. Anemia associated with menstrual bleeding and iron deficiency. 2. Bilateral venous thrombosis upper extremities. PATIENT PROFILE The patient is a 46-year-old black female. She has never been . She has four sons. She was [place] in [place]. She has lived in [place] for 30 years. She is currently not working. 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 She has smoked half a pack of cigarettes per day for many years, although recently has decreased tobacco use. She has approximately two beers a day. There is no use of recreational drugs. HISTORY OF PRESENT ILLNESS The patient has had longstanding history of heavy menstrual bleeding. At some point she was given IV iron for her bleeding. The patient has a history of upper extremity venous thrombosis. On 05/01/2014 she had a thrombus identified in the basilic vein in the left arm as well as a nonocclusive thrombus in the cephalic vein. The axillary vein and jugular vein were present at that time. She recollects having an IV in place and this was probably the precipitating event. She was given Lovenox and then took Coumadin for 3 months. Coumadin was discontinued in part due to the fact that she was having worsening menstrual bleeding. On 07/23/2015, she had evaluation for left upper extremity pain and at that time there was no evidence of venous thrombosis within the left upper extremity. She has been on aspirin for prevention of recurrent venous thrombosis. The months prior on June 11, 2016, she did have a nonocclusive thrombosis in the left basilic vein. Whether or not this is new or old is unclear to me in reviewing the records. Approximately 5 days ago she developed swelling initially in the right arm. She states that she saw a physician and was told to continue aspirin, use nonsteroidal anti-inflammatory medications and warm soaks. She did as requested and within the past day or two developed swelling of the left arm. There was no precipitating event, there was no injury to either upper extremities. She was not doing any heavy lifting or lifting her arms above her head. She is not taking any estrogen replacements. There is no family history of any thromboembolic disease and there has essentially been no change in her health other than increasing weakness and mild shortness of breath associated with anemia with her hemoglobin being 6.2 on 09/26/2016. On 09/28/2016, she had bilateral ultrasounds of the upper extremities. The right upper extremity shows nonocclusive thrombus in the right brachial vein. There appears to be occlusive thrombus in the right basilic vein. There is spontaneous flow documented in the cephalic, axillary and subclavian veins. In the left upper extremity there is nonocclusive thrombus in the left brachial vein. There appears to be occlusive thrombus in the left basilic vein. There is spontaneous flow documented in the cephalic, axillary and subclavian veins. This is the first time she has had thrombus in the right arm. As per the ultrasound dated 05/01/2014 which reads ultrasound Doppler left arm which showed thrombus and on 06/11/2016 she again had evidence of thrombus in the left basilic vein and we now have thrombus in the contralateral side for the first time occurring on aspirin. PAST SURGICAL HISTORY 1. Tonsillectomy. 2. Tubal ligation. 3. Surgery are of lower jaw for Jn's angina. MEDICATIONS PRIOR TO ADMISSION 1. Aspirin 325 mg a day. 2. Iron sulfate 325 mg two pills twice a day, at one point her physicians asked her to take six pills a day. ALLERGIES CODEINE. FAMILY HISTORY There is no history of any hypercoagulable disorder. Mother is living. She does not know anything about her father. She has a sister and brother who are well and no one has had any thromboembolic disease. PAST MEDICAL HISTORY Past medical history includes: 1. Venous thrombosis as described above. 2. Chronic heavy menstrual bleeding. REVIEW OF SYSTEMS CONSTITUTIONAL: She is well except for fatigue and mild exertional shortness of breath associated with her anemia. No change in vision or hearing. No chest pain, palpitations. RESPIRATORY: Minimal exertional shortness of breath. GI: Stools are dark from the oral iron but no blood. : Notable for menstrual periods lasting for approximately 5 days every month. She will use in excess of 12 pads for 2 or 3 days associated with it. MUSCULOSKELETAL: No bone pain. NEUROLOGIC: No weakness. PSYCHIATRIC: No depression. LABORATORY STUDIES On 09/28, hemoglobin 6.6, white count 7300, platelets 403,000, MCV is 52, RDW was 34. Iron is 11, TIBC 484, saturations 2%, ferritin is 7, LDH is 248, BUN 12, creatinine is 1.1. IMAGING STUDIES Other than the ultrasound of the upper extremities, include a pelvic ultrasound on 09/29/2016 showing a 7 cm solid mass in the uterine fundus characteristic of a fibroid which has increased in size. PHYSICAL EXAM: afebrile, pulse 90, rr 18, patient appears well HEENT normal no cervical, supraclavicular axillary or inguinal adenopathy Breasts : no masses Heart: reg rhythm. no murmur or gallop Lungs : clear ABD: no tenderness, no enlargement of liver or spleen. Extrem. lower extremities: normal. upper Extremities: painful venous cords along the medial forearms bilaterally consistent with thrombosis of basilic veins. mild swelling and tenderness of forearms bilaterally. SKIN: normal Neurologic: normal Psychiatric: normal ASSESSMENT/PLAN 1: Iron deficiency anemia secondary to menstrual blood loss. I am going to give the patient approximately 1800 mg of IV iron and this will allow her to make at least 6 units of blood. I have spoken with Dr. White and he will do a D and C to decrease the bleeding. Heparin can be held for the procedure and resume several hours later if bleeding not problematic. 2:The bilateral upper extremity venous thrombosis is poorly explained. Her first venous thrombosis which occurred on 05/01/2014 involving the left arm was probably related to an IV. She recollects having an IV in the arm. The current one nvolving the right arm is not well explained. Her history is not suggestive of a hypercoagulable disorder. For the moment I would continue heparin. On discharge I would like her take one of the new oral anticoagulants, either Xarelto 20 mg a day or apixaban 5 mg twice a day. I would like this to be maintained for at least 3 months and if she is doing well then I would recommend continuing anticoagulation, but using either apixaban 2.5 mg twice a day or rivaroxaban 10 mg once a day. This is effective in decreasing the risk of further thrombosis. It carries no increased risk of bleeding when compared with the use of aspirin, and given her age and the necessity of possible lifetime anticoagulation, I would want to try to pick a dose which has a very low risk of hemorrhage over a long period of time. In terms of evaluating the etiology of the thrombosis, I am not sure we are going to come up with an answer. The first blood clot in the left arm may have predisposed her to further clotting in the same arm, but does not explain what happened in the right arm. I have spoken with Dr. Davis (radiology) and I am ordering a special arterial/venous study of the venous structures to the arms, to see if there is an anatomical abnormality. I expect that the study will be normal but I believe it is worthwhile doing. I have ordered a partial evaluation for a hypercoagulable state, looking at tests which will not be affected by the immediate thrombosis or heparin. She will have a beta-2 glycoprotein, cardiolipin antibodies, factor V Leiden, lupus anticoagulate, phosphatidylserine antibodies and a prothrombin gene mutation. I am not going to do protein S, protein C, antithrombin III, given that she is on heparin and has an acute clot. The situation has been discussed with Dr. White. If there is a significant drop in hemoglobin then without hesitation I would give her blood as it will take a while for the iron to work. She has a H&H for tomorrow. It is imperative that we stop the bleeding. MD JESSICA Pace/CHAS /9:36 AM /10:10 AM MTDAguilar
[2016-09-30 12:00] VITALS: BP 134/69; PULSE 60; RESP 18; TEMP 97.1; O2SAT 98
[2016-09-30] MEDS ORDERED: IRON DEXTRAN 100 MG/2 ML VIAL IV ONE ×2 (13:15→14:00)
[2016-09-30] MEDS ORDERED: diphenhydrAMINE HCL 25 MG CAP PO ONE (14:30)
[2016-09-30] MEDS ORDERED: FAMOTIDINE 20 MG TAB PO ONE (14:30)
[2016-09-30] MEDS ORDERED: DEXAMETHASONE SOD PHOS 20 MG/5 ML VIAL IV ONE (14:40)
[2016-09-30] MEDS ORDERED: IRON DEXTRAN IV ONE (15:00)
[2016-09-30] MEDS ORDERED: SODIUM CHLORID 0.9% IV ONE (15:00)
[2016-09-30] MEDS ORDERED: IOHEXOL 350 MG/ML 10 ML VIAL (for RAD DIAG) IV ONE (15:59)
[2016-09-30 16:00] VITALS: BP 141/80; PULSE 56; RESP 18; TEMP 97; O2SAT 99
--- NOTE | 2016-09-30 17:42 | RADRPT ---
EXAM DATE/TIME: 09/30/2016 15:38 [facility] COMPARISON: No previous studies available for comparison. INDICATIONS : Evaluate for venous thrombosis. IV CONTRAST: 90 cc Omnipaque 350 (iohexol) IV ; Cumulative dose for multiple exams. RADIATION DOSE: 10.40 CTDIvol (mGy) ; Combined studies MEDICAL HISTORY : Cardiovascular disease. Hypertension. DVT in left arm, menometrorrhagia, Jn angina. SURGICAL HISTORY : Tubal ligation. ENCOUNTER: Initial ACUITY: 2 days PAIN SCALE: 3/10 LOCATION: Bilateral upper arm. TECHNIQUE: Volumetric scanning was performed using a multirow detector CT scanner. Using automated exposure cont rol and adjustment of the mA and/or kV according to patient size, radiation dose was kept as low as r easonably achievable to obtain optimal diagnostic quality images. The data was post processed with a variety of visualization algorithms including full-volume maximum intensity projection, multiplanar sliding thin-slab reformation, curved-planar reformation, and surface-rendering techniques. Using au tomated exposure control and adjustment of the mA and/or kV according to patient size, radiation dose was kept as low as reasonably achievable to obtain optimal diagnostic quality images. DICOM format image data is available electronically for review and comparison. FINDINGS: Examination was performed primarily to evaluate for extent of upper extremity DVTs and as noted on re cent ultrasound exam with thrombus in the brachial and basilic veins bilaterally. Unfortunately, desp ite significant the delayed scanning, the upper extremity veins are not visualized and the exam is es sentially in the arterial phase for the upper extremities. The central venous structures are visualiz ed. Both internal jugular veins are visualized and appear patent. The confluence of the internal jugu lar veins and the brachiocephalic veins are also visualized and appear patent. The external jugular v eins are also patent. There is standard 3 vessel arch anatomy. The right brachiocephalic, subclavian, axilla, brachial, uln ar, and radial arteries are patent. The right common carotid artery is patent. The left common caroti d artery is patent. The left subclavian, axillary, brachial, ulnar, and radial arteries are patent. Visualized soft tissues demonstrate numerous bilateral subcentimeter axillary nodes which do not meet CT size criteria. Thyroid appears unremarkable by CT. Visualized lung apices are clear. Visualized o sseous structures are intact without evidence for acute fracture or focal lytic or blastic bony lesio ns. CONCLUSION: 1. Nondiagnostic CTV examination in this patient with history of suspected extensive bilateral upper extremity DVTs, as above. The central jugular veins to the junction of the brachiocephalic veins are patent. The subclavian and more peripheral veins are not adequately opacified for evaluation. 2. Normal CT angiography of the upper extremities with widely patent proximal arch vessels. Ez Iglesias MD on September 30, 2016 at 17:23 Board Certified Radiologist. This report was verified electronically.
[2016-09-30] MEDS ORDERED: ACETAMINOPHEN 1000 MG/100 ML VIAL IV ONE (18:04)
[2016-09-30] MEDS ORDERED: MIDAZOLAM HCL 2 MG/2 ML VIAL ONE (18:06)
--- NOTE | 2016-09-30 18:34 | EKG ---
Date Performed: 09/29/2016 Time Performed: 20:26:24 PTAGE: 46 years EKG: Sinus rhythm WITH SINUS ARRHYTHMIA POSSIBLE ANTERIOR MYOCARDIAL INFARCTION , OF INDETERMINATE AGE Compared to pre vious tracing, the inferior T wave changes are new, but there's otherwise no significant serial guerrero e ABNORMAL ECG PREVIOUS TRACING : 07/01/2015 10.50 DOCTOR: Cira Ku Interpretating Date/Time 09/30/2016 18:32:54
[2016-09-30] MEDS ORDERED: DO NOT ADM ANY ANTICOAGULANT DRUGS PRN (19:28)
[2016-09-30 20:00] VITALS: BP 121/68; PULSE 69; RESP 18; TEMP 97; O2SAT 95
[2016-09-30] MEDS ORDERED: MORPHINE SULFATE 4 MG/ML INJ ONE (20:00)
[2016-09-30 21:00] LABS: MEAN CORPUSCULAR HGB CONC 26.6 % (32.0-36.0)
[2016-10-01] VITALS (7 sets, daily range): BP systolic 100–151; BP diastolic 50–89; PULSE 55–75; RESP 16–18; TEMP 96.7–98.8; O2SAT 92–100
[2016-10-01] MEDS: ZOLPIDEM TARTRATE 5 MG TAB PO PRN ×2 (00:13→20:31)
[2016-10-01] MEDS: oxyCODONE/ACETAMINOPHEN 5 MG/325 MG TAB PO PRN ×4 (02:50→16:13)
[2016-10-01 05:57] LABS: HEMATOCRIT 31.1 % (35.0-46.0); MEAN CELL VOLUME 56.6 FL (80.0-100.0); MEAN CORPUSCULAR HEMOGLOBIN 15.1 PG (27.0-34.0); PLATELET COUNT 671 TH/MM3 (150-450); RED CELL DISTRIBUTION WIDTH 39.7 % (11.6-17.2); WHITE BLOOD COUNT 11.8 TH/MM3 (4.0-11.0)
[2016-10-01 05:58] LABS: REVIEW FLAG FINAL
[2016-10-01 06:05] LABS: APTT (PATIENT) 64.1 SEC (24.3-30.1)
[2016-10-01] MEDS: HEPARIN-D5W INJ 250 ML IV SCH ×2 (07:49→23:22)
[2016-10-01] MEDS: DOCUSATE SODIUM 50 MG/SENNA 8.6 MG TAB PO SCH ×2 (07:50→20:04)
--- NOTE | 2016-10-01 08:07 | HHI.PR ---
Subjective Remarks Follow up for menometrorrhagia, bilateral upper ext DVT. Patient is currently doing well. She underwent gynecological surgical intervention yesterday. No acute concerns at this point. No fever, chills. Objective Vitals Vital Signs Date Time Temp Pulse Resp B/P Pulse Ox O2 Delivery O2 Flow Rate FiO2 10/01/16 04:00 97.2 68 18 111/60 97 10/01/16 00:00 96.9 75 18 100/50 92 09/30/16 20:15 72 16 148/71 96 Nasal Cannula 3 09/30/16 20:00 97.0 69 18 121/68 95 09/30/16 20:00 74 16 152/77 97 Nasal Cannula 3 09/30/16 19:45 74 14 153/79 97 Nasal Cannula 3 09/30/16 19:30 98.6 77 14 150/83 100 Nasal Cannula 3 09/30/16 16:00 97.0 56 18 141/80 99 09/30/16 12:00 97.1 60 18 134/69 98 I/O 09/30/16 09/30/16 09/30/16 10/01/16 10/01/16 10/01/16 07:00 15:00 23:00 07:00 15:00 23:00 Intake Total 600 ml 840 ml 150 ml Output Total 240 ml Balance 600 ml 840 ml -90 ml Intake Oral 600 ml 840 ml Other 150 ml Output Urine Total 200 ml Estimated Blood Loss 40 ml # Voids 2 2 1 # Bowel Movements 0 Result Diagram: 10/01/16 0420 09/30/16 0500 Imaging Last Impressions Upper Extremity CTA 09/30/16 0000 Signed Impressions: Service Date/Time: September 15:38 - CONCLUSION: 1. Nondiagnostic CTV examination in this patient with history of suspected extensive bilateral upper extremity DVTs, as above. The central jugular veins to the junction of the brachiocephalic veins are patent. The subclavian and more peripheral veins are not adequately opacified for evaluation. 2. Normal CT angiography of the upper extremities with widely patent proximal arch vessels. Ez Iglesias MD Pelvis Ultrasound 09/29/16 0000 Signed Impressions: Service Date/Time: Thursday, September 29, 2016 20:18 - CONCLUSION: 1. 6.9 cm uterine fibroid, increased in size from comparison exam in February 2015. 2. Small left ovarian cyst. Right ovary not visualized. Colin Davis MD Upper Extremity Ultrasound 09/28/16 0000 Signed Impressions: Service Date/Time: Wednesday, September 28, 2016 16:36 - CONCLUSION: Thrombus in the brachial and basilic veins bilaterally. Eyal Fox MD Objective Remarks GENERAL: Alert, oriented 3, NAD. SKIN: Warm and dry. HEAD: Normocephalic. EYES: No scleral icterus. No injection or drainage. NECK: Supple, trachea midline. No JVD or lymphadenopathy. CARDIOVASCULAR: Regular rate and rhythm without murmurs, gallops, or rubs. RESPIRATORY: Breath sounds equal bilaterally. No accessory muscle use. GASTROINTESTINAL: Abdomen soft, non-tender, nondistended. MUSCULOSKELETAL: No cyanosis, or edema. BACK: Nontender without obvious deformity. No CVA tenderness. Procedures None A/P Problem List: (1) Acute deep vein thrombosis (DVT) of both upper extremities ICD Code: I82.623 Status: Acute (2) Menometrorrhagia ICD Code: N92.1 Status: Acute (3) Iron deficiency anemia ICD Code: D50.9 Status: Acute Assessment and Plan 46-year-old female with a history of menometrorrhagia, previous upper ext DVT who presented to the ED due to worsening upper extremity pain and swelling. ED work up indicated bilateral upper extremity DVT. She was also found to have anemia with hemoglobin of 6.6 without patient has known menometrorrhagia. Unfortunately, patient has not been able to follow up with physicians including hematology or manager export due to lack of insurance. - Acute deep vein thrombosis of the upper extremities - Patient has a history of upper ext DVT for which she was on warfarin for 6 months. - Discussed with Dr. Chau (Hematology) who recommends heparin for now then oral anticoagulants for 3 months then chronic therapy with half the dose of oral anticoagulant. - Anticoagulation with probably Apixaban 5mg BID for 3 months then 2.5mg BID. Chronic iron deficiency anemia - Patient received 2 units of PRBCs. - Hematology will provide Iron infusion. Discussed with Dr. Chau. Menometrorrhagia - Given the patient's persistent anemia and recurrent DVT. She will need to be anticoagulated. - DRUM STENCILER performed surgical intervention yesterday - possibly D&C and endometrial ablation. Op note not available yet. Full code. Heparin drip. Discussed with Dr. Chau. Possible discharge on 10/02/2016. Rosa Velazquez DO Oct 01, 2016 8:07 am
[2016-10-01] MEDS: SODIUM CHLORIDE 0.9% FLUSH 10 ML FLUSH IVF SCH (11:32)
[2016-10-01] MEDS: SODIUM CHLORIDE 0.9% FLUSH 10 ML FLUSH IV FLUSH SCH ×2 (11:32→20:02)
[2016-10-01] MEDS: LACTULOSE SYRUP 20 GM/30 ML CUP PO PRN (11:34)
[2016-10-01 11:46] LABS: APTT (PATIENT) 83.3 SEC (24.3-30.1)
--- NOTE | 2016-10-01 11:47 | PD.ONC.PN ---
Subjective Subjective Remarks Afebrile overnight. Patient resting in bed in nad. Some improvement in the swelling in right arm. Objective Data Date Time Temp Pulse Resp B/P Pulse Ox O2 Delivery O2 Flow Rate FiO2 10/01/16 08:30 98.2 55 18 151/74 98 10/01/16 04:00 97.2 68 18 111/60 97 10/01/16 00:00 96.9 75 18 100/50 92 09/30/16 20:15 72 16 148/71 96 Nasal Cannula 3 09/30/16 20:00 97.0 69 18 121/68 95 09/30/16 20:00 74 16 152/77 97 Nasal Cannula 3 09/30/16 19:45 74 14 153/79 97 Nasal Cannula 3 09/30/16 19:30 98.6 77 14 150/83 100 Nasal Cannula 3 09/30/16 16:00 97.0 56 18 141/80 99 09/30/16 12:00 97.1 60 18 134/69 98 Result Diagram: 10/01/16 0420 09/30/16 0500 Laboratory Results Laboratory Tests Test 10/01/16 04:20 White Blood Count 11.8 TH/MM3 Red Blood Count 5.50 MIL/MM3 Hemoglobin 8.3 GM/DL Hematocrit 31.1 % Mean Corpuscular Volume 56.6 FL Mean Corpuscular Hemoglobin 15.1 PG Mean Corpuscular Hemoglobin 26.6 % Concent Red Cell Distribution Width 39.7 % Platelet Count 671 TH/MM3 Mean Platelet Volume 9.3 FL Activated Partial 64.1 SEC Thromboplast Time Administered Medications Medications (Trade) Dose Ordered Sig/Patricia Route PRN Reason Start Time Stop Time Status Last Admin Dose Admin Sodium Chloride (NS Flush) 2 ml BID IV FLUSH 09/28/16 21:00 10/01/16 11:32 Senna/Docusate Sodium (Lauren-Colace) 1 tab BID PO 09/28/16 21:00 09/30/16 21:36 Lactulose 30 ml 30 ml DAILY PRN PO SEVERE CONSITIPATION 09/28/16 18:45 10/01/16 11:34 Heparin Sodium/ Dextrose (Heparin-D5W Inj) 250 ml @ 0 mls/hr TITRATE IV 09/28/16 18:45 10/01/16 07:49 Sodium Chloride (NS Flush) DAILY IVF 09/30/16 09:00 10/01/16 11:32 Oxycodone/ Acetaminophen (Percocet 5-325 Mg) 1 tab Q4H PRN PO PAIN 1-10 09/29/16 20:15 10/01/16 11:31 Zolpidem Tartrate (Ambien) 5 mg HS PRN PO INSOMNIA 09/29/16 20:15 10/01/16 00:13 Objective Remarks GENERAL: Middle aged female upright in bed in nad. SKIN: Warm and dry. HEAD: Normocephalic. EYES: No injection or drainage. EXTREMITIES: some swelling in the right forearm, some basilic vein tenderness. MUSCULOSKELETAL: Adequate muscle tone. NEUROLOGICAL: awake and alert, normal speech. Assessment/Plan Assessment 46y/o female with JACE and BUE venous thrombosis Plan 1. iron dextran 1800mg IV will be given today--was held yesterday d/t surgery. 2. face sheet faxed to new patient referrals for follow up with Dr. Chau in three weeks time 3. continue heparin gtt. Would d/c home on Apixaban. Attending Statement The exam, history, and the medical decision-making described in the above note were completed with the assistance of the mid-level provider. I reviewed and agree with the findings presented. I attest that I had a [id number] encounter with the patient on the same day, and personally performed and documented my assessment and findings in the medical record. she is doing well and forearms left swollen and cord in forearm softer and less tender. will transfuse iron and can go home tomorrow on apixiban 5 mg bid or xarelto 20 mg a day with outpatient follow up. Marina Vásquez Oct 01, 2016 11:47 Geovanny Chau MD Oct 01, 2016 20:07
[2016-10-01] MEDS ORDERED: IRON DEXTRAN IV ONE (12:00)
[2016-10-01] MEDS ORDERED: SODIUM CHLORID 0.9% IV ONE (12:00)
[2016-10-01] MEDS ORDERED: IRON DEXTRAN 100 MG/2 ML VIAL IV ONE (12:00)
[2016-10-01] MEDS ORDERED: oxyCODONE/ACETAMINOPHEN 5 MG/325 MG TAB PO ONE (14:30)
--- NOTE | 2016-10-01 18:01 | MP ---
cc: Erika WHITE MD DATE OF SURGERY 09/30/16 PREOPERATIVE DIAGNOSIS 1. Severe metromenorrhagia. 2. Severe anemia, requiring transfusion. POSTOPERATIVE DIAGNOSIS 3. Severe metromenorrhagia. 4. Severe anemia, requiring transfusion. 5. Enlarged globular uterus. PROCEDURE Examination under anesthesia, dilation and curettage of the uterus, hysteroscopic exam and an attempted NovaSure endometrial ablation. ANESTHESIA General. SURGEON Jeremy White MD FINDINGS Examination under anesthesia, vagina was clean. The cervix was clean. The os was opened proximally 3 mm. The uterus was globular, enlarged. The adnexa was negative for any masses. The hysteroscopic exam revealed an enlarged endometrial cavity which sounded to 10 cm. It was quite wide at the fundus. There was no polyps or submucous myomas present. The D&C revealed a moderate amount of tissue. The endometrial ablation was attempted for approximately 45 minutes without success. COMPLICATIONS None. COUNTS Correct. ESTIMATED BLOOD LOSS Minimal. DISPOSITION The patient tolerated the procedure well and went to recovery room in good condition. PROCEDURE IN DETAIL The patient was taken to the operating room identified by name band and verbally after being off her heparin for approximately 4 hours. She was given a general anesthetic and prepped and draped in the usual sterile fashion for vaginal surgery. A time-out was taken and the urinary bladder was then drained of approximately 200 cc of clear yellow urine. The examination under anesthesia with the above findings was carried out. A weighted speculum was placed in the vagina. The anterior lip of the cervix was grasped with a single-tooth tenaculum. The hysteroscopic exam was carried out using a 4 mm hysteroscope. There was some bleeding present but essentially I did not see any polyps or submucous myomas. At this point a sharp curettage was performed using a #2 sharp curette and vigorous curetting. At this point we inserted the NovaSure endometrial ablation system. We used a length of 6.5 and a width of 4.5 cm. Again, I noted that the endometrial cavity was quite large but in an effort to slow down or stop her bleeding we felt this was ___attempt. At this point we had some technical difficulties with the NovaSure machine and we could not get it to work. We called the rep. We had difficulty getting a hold of the rep, at one hour's time we still could not get this to work so I aborted the attempt because of the time delay. The patient had all the instruments removed. She tolerated the procedure well. We took her to recovery room in good condition completes a note on gregg anthony and S1 R. Eyal White MD RJV/DAYRON /7:42 AM /5:48 PM
--- NOTE | 2016-10-01 18:43 | HHI.PR ---
Subjective Remarks Feeling better, no SOB or CP. Vaginal bleeding is scant and no significant pain Arm swelling is getting better. Objective Vital Signs Date Time Temp Pulse Resp B/P Pulse Ox O2 Delivery O2 Flow Rate FiO2 10/01/16 16:00 98.3 75 16 148/89 99 10/01/16 13:50 98 10/01/16 12:00 98.8 62 16 138/70 100 10/01/16 08:30 98.2 55 18 151/74 98 10/01/16 04:00 97.2 68 18 111/60 97 10/01/16 00:00 96.9 75 18 100/50 92 09/30/16 20:15 72 16 148/71 96 Nasal Cannula 3 09/30/16 20:00 97.0 69 18 121/68 95 09/30/16 20:00 74 16 152/77 97 Nasal Cannula 3 09/30/16 19:45 74 14 153/79 97 Nasal Cannula 3 09/30/16 19:30 98.6 77 14 150/83 100 Nasal Cannula 3 I/O 09/30/16 09/30/16 09/30/16 10/01/16 10/01/16 10/01/16 07:00 15:00 23:00 07:00 15:00 23:00 Intake Total 600 ml 840 ml 150 ml 112 ml Output Total 240 ml Balance 600 ml 840 ml -90 ml 112 ml Intake Oral 600 ml 840 ml IV Total 112 ml Other 150 ml Output Urine Total 200 ml Estimated Blood Loss 40 ml # Voids 2 2 1 # Bowel Movements 0 Result Diagram: 10/01/16 0420 09/30/16 0500 Imaging Reviewed CTA, U/S Other Results Chest is clear Arms look less swollen CV RRR Abd is soft and non tender Lower extremities are non tender, no swelling or cords Assessment and Plan Assessment and Plan 1. Severe menometrorrhagia. most likely due to the large fibroid as the endometrial lining was only 3 mm. We need to stop the bleeding now and I feel the best option may be uterine artery embolization. This would be less risky than a hysterectomy and could be done in the next couple of days. I would like to keep her over the weekend on heparin to assess her vaginal bleeding as if it becomes heavy we may need to stop the heparin and transfuse her again. In this case I would call the IR to hasten uterine artery embolization. I am concerned about an embolus during surgery. 2. Bilateral upper extremity DVTs The CTA with delayed imaging was not conclusive. I wonder if there is some anatomic process in the chest causing these thrombosis. I wonder if a venogram may help in this and will defer that to hematology. The swelling in her arms is improving. 3. Severe anemia.. Her blood count is stable now and we should watch her for seeveral days as she is now anticoagulated. I would also like to not start the apixaban until we are sure she is not going to hemorrhage on anticoagulation regieme. Her anemia is certainly due to vaginal blood loss as her haptaglobin and hdl are normal. Her iron studies are also consistent with iron deficiency. Discussed Condition With Hematology, Hospitalist, Interventional radiology. Patient Discharge Planning keep her over the weekend and on heparin. consider discharge home after the [place]. Erika White MD Oct 01, 2016 18:43
[2016-10-01] MEDS: oxyCODONE/ACETAMINOPHEN 10 MG/325 MG TAB PO PRN (20:04)
[2016-10-01 21:20] LABS: APTT (PATIENT) 90.5 SEC (24.3-30.1)
[2016-10-02] VITALS: BP 166/90; PULSE 58; RESP 16; TEMP 97.2; O2SAT 98
[2016-10-02] MEDS: oxyCODONE/ACETAMINOPHEN 10 MG/325 MG TAB PO PRN ×5 (00:10→21:50)
[2016-10-02 04:00] VITALS: BP 150/80; PULSE 57; RESP 17; TEMP 97.5; O2SAT 97
[2016-10-02 05:25] LABS: APTT (PATIENT) 111.6 SEC (24.3-30.1)
[2016-10-02] MEDS ORDERED: diphenhydrAMINE HCL 25 MG CAP PO SCH (07:00)
[2016-10-02 08:34] VITALS: BP 148/66; PULSE 53; RESP 21; TEMP 96.8; O2SAT 99
[2016-10-02] MEDS: SODIUM CHLORIDE 0.9% FLUSH 10 ML FLUSH IV FLUSH SCH ×2 (08:40→20:02)
[2016-10-02] MEDS: SODIUM CHLORIDE 0.9% FLUSH 10 ML FLUSH IVF SCH (08:40)
--- NOTE | 2016-10-02 08:45 | HHI.PR ---
Subjective Remarks Follow up for bilateral upper ext DVT, menometrorrhagia. No vaginal bleeding. Patient is doing well. No fever, chills. Currently on heparin drip. Objective Vitals Vital Signs Date Time Temp Pulse Resp B/P Pulse Ox O2 Delivery O2 Flow Rate FiO2 10/02/16 08:34 96.8 53 21 148/66 99 10/02/16 04:58 18 10/02/16 04:00 97.5 57 17 150/80 97 10/02/16 00:00 97.2 58 16 166/90 98 10/01/16 20:00 96.7 62 17 141/78 99 10/01/16 16:00 98.3 75 16 148/89 99 10/01/16 13:50 98 10/01/16 12:00 98.8 62 16 138/70 100 I/O 10/01/16 10/01/16 10/01/16 10/02/16 10/02/16 10/02/16 07:00 15:00 23:00 07:00 15:00 23:00 Intake Total 1312 ml 480 ml 480 ml Balance 1312 ml 480 ml 480 ml Intake Oral 1200 ml 480 ml 480 ml IV Total 112 ml # Voids 3 2 2 # Bowel Movements 2 2 Result Diagram: 10/01/16 0420 09/30/16 0500 Imaging Last Impressions Upper Extremity CTA 09/30/16 0000 Signed Impressions: Service Date/Time: September 15:38 - CONCLUSION: 1. Nondiagnostic CTV examination in this patient with history of suspected extensive bilateral upper extremity DVTs, as above. The central jugular veins to the junction of the brachiocephalic veins are patent. The subclavian and more peripheral veins are not adequately opacified for evaluation. 2. Normal CT angiography of the upper extremities with widely patent proximal arch vessels. Ez Iglesias MD Pelvis Ultrasound 09/29/16 0000 Signed Impressions: Service Date/Time: Thursday, September 29, 2016 20:18 - CONCLUSION: 1. 6.9 cm uterine fibroid, increased in size from comparison exam in February 2015. 2. Small left ovarian cyst. Right ovary not visualized. Colin Davis MD Upper Extremity Ultrasound 09/28/16 0000 Signed Impressions: Service Date/Time: Wednesday, September 28, 2016 16:36 - CONCLUSION: Thrombus in the brachial and basilic veins bilaterally. Eyal Fox MD Objective Remarks GENERAL: Alert, oriented 3, NAD. SKIN: Warm and dry. HEAD: Normocephalic. EYES: No scleral icterus. No injection or drainage. NECK: Supple, trachea midline. No JVD or lymphadenopathy. CARDIOVASCULAR: Regular rate and rhythm without murmurs, gallops, or rubs. RESPIRATORY: Breath sounds equal bilaterally. No accessory muscle use. GASTROINTESTINAL: Abdomen soft, non-tender, nondistended. MUSCULOSKELETAL: No cyanosis, or edema. BACK: Nontender without obvious deformity. No CVA tenderness. Procedures None A/P Problem List: (1) Acute deep vein thrombosis (DVT) of both upper extremities ICD Code: I82.623 Status: Acute (2) Menometrorrhagia ICD Code: N92.1 Status: Acute (3) Iron deficiency anemia ICD Code: D50.9 Status: Acute Assessment and Plan 46-year-old female with a history of menometrorrhagia, previous upper ext DVT who presented to the ED due to worsening upper extremity pain and swelling. ED work up indicated bilateral upper extremity DVT. She was also found to have anemia with hemoglobin of 6.6 without patient has known menometrorrhagia. Unfortunately, patient has not been able to follow up with physicians including hematology or lease administration analyst due to lack of insurance. - Acute deep vein thrombosis of the upper extremities - Patient has a history of upper ext DVT for which she was on warfarin for 6 months. - Discussed with Dr. Chau (Hematology) who recommends heparin for now then oral anticoagulants for 3 months then chronic therapy with half the dose of oral anticoagulant. - Anticoagulation with probably Apixaban 5mg BID for 3 months then 2.5mg BID. Chronic iron deficiency anemia - Patient received 2 units of PRBCs. - Hematology provided 1800mg IV Iron yesterday. Dr. Chau will follow in the outpatient setting. Menometrorrhagia - Given the patient's persistent anemia and recurrent DVT. She will need to be anticoagulated. - CLAIM CLERK performed D&C and endometrial ablation. - CLAIM CLERK recommends continuation of heparin through the weekend and on 2016, potential discharge after uterine artery embolization by IR. Full code. Heparin drip. Discussed with Hematology. Possible discharge on 10/04/2016. Rosa Velazquez DO Oct 02, 2016 8:45 am
[2016-10-02] MEDS: DOCUSATE SODIUM 50 MG/SENNA 8.6 MG TAB PO SCH ×2 (09:00→20:02)
--- NOTE | 2016-10-02 10:55 | PD.ONC.PN ---
Subjective Subjective Remarks Afebrile overnight. Had some constipation last night, which made it difficult for her to sleep. Resting in bed in nad. Scant vaginal bleeding. Tolerated IV iron. Objective Data Date Time Temp Pulse Resp B/P Pulse Ox O2 Delivery O2 Flow Rate FiO2 10/02/16 08:34 96.8 53 21 148/66 99 10/02/16 04:58 18 10/02/16 04:00 97.5 57 17 150/80 97 10/02/16 00:00 97.2 58 16 166/90 98 10/01/16 20:00 96.7 62 17 141/78 99 10/01/16 16:00 98.3 75 16 148/89 99 10/01/16 13:50 98 10/01/16 12:00 98.8 62 16 138/70 100 10/02/16 10/02/16 10/02/16 07:00 15:00 23:00 Intake Total 480 ml Balance 480 ml Result Diagram: 10/01/16 0420 09/30/16 0500 Laboratory Results Laboratory Tests Test 10/01/16 10/01/16 10/02/16 11:00 20:22 03:30 Activated Partial 83.3 SEC 90.5 SEC 111.6 SEC Thromboplast Time Administered Medications Medications (Trade) Dose Ordered Sig/Patricia Route PRN Reason Start Time Stop Time Status Last Admin Dose Admin Sodium Chloride (NS Flush) 2 ml BID IV FLUSH 09/28/16 21:00 10/02/16 08:40 Senna/Docusate Sodium (Lauren-Colace) 1 tab BID PO 09/28/16 21:00 10/01/16 20:04 Magnesium Hydroxide (Milk Of Magnesia Liq) 30 ml Q12H PRN PO MILD - MODERATE CONSTIPATION 09/28/16 18:45 10/01/16 20:07 Lactulose 30 ml 30 ml DAILY PRN PO SEVERE CONSITIPATION 09/28/16 18:45 10/01/16 11:34 Heparin Sodium/ Dextrose (Heparin-D5W Inj) 250 ml @ 0 mls/hr TITRATE IV 09/28/16 18:45 10/01/16 23:22 Sodium Chloride (NS Flush) DAILY IVF 09/30/16 09:00 10/02/16 08:40 Oxycodone/ Acetaminophen (Percocet 5-325 Mg) 1 tab Q4H PRN PO PAIN 1-5 09/29/16 20:15 10/01/16 16:13 Zolpidem Tartrate (Ambien) 5 mg HS PRN PO INSOMNIA 09/29/16 20:15 10/01/16 20:31 Oxycodone/ Acetaminophen (Percocet 10-325 Mg) 1 tab Q4H PRN PO PAIN 6-10 10/01/16 14:30 10/02/16 03:58 Objective Remarks GENERAL: Elderly female lying in bed, sleeping on approach. SKIN: Warm and dry. central line in place, right chest wall. HEAD: Normocephalic. EYES: No injection or drainage. NECK: Supple, trachea midline. CARDIOVASCULAR: Regular rate and rhythm RESPIRATORY: Breath sounds equal bilaterally. No accessory muscle use. GASTROINTESTINAL: Abdomen soft, non-tender, nondistended. EXTREMITIES: No cyanosis NEUROLOGICAL: awake and alert, normal speech. moving all extremities. Assessment/Plan Assessment 46y/o female with iron deficiency anemia secondary to vaginal bleeding as well as bilateral upper extremity venous thrombosis. s/p D&C, 10/01/16 Plan 1. anemia: s/p iron dextran 1800mg IV on 10/01. monitor CBC. last transfusion was on 09/29 2. bilateral upper extremity DVT: continue heparin gtt over the weekend. After [place] in IR on Tuesday, can start Apixiban. 3. Vaginal bleeding: treatment per WASHING MACHINE LOADER. patient with large fibroid, s/p D&C on and will undergo uterine artery embolization in IR on Tuesday Attending Statement The exam, history, and the medical decision-making described in the above note were completed with the assistance of the mid-level provider. I reviewed and agree with the findings presented. I attest that I had a [id number] encounter with the patient on the same day, and personally performed and documented my assessment and findings in the medical record. Patient seen and examined, labs, vital signs, medications, coags as well as gynecology service input was reviewed. She feels the swelling in her arms is decreasing. She is on a heparin drip, her PTT was above the range I would like as if this morning. Thankfully she has not had any more vaginal bleeding. I did modify her heparin protocol to tighten controls a little bit to back off on the hourly infusion rate. I'm hoping to maintain her PTT in the high 50s to mid 60s to provide a appropriate anticoagulation effect but not to provoke recurrent bleeding from the uterine fibroids. Her prothrombotic workup is pending (a was drawn but has not been resulted). The plan is to continue anticoagulation until Tuesday, at that time she will undergo arterial ablation of the uterine fibroid with interventional radiology. Marina Vásquez Oct 02, 2016 10:55 Natanael Muro MD Oct 02, 2016 15:01
[2016-10-02 11:26] LABS: MEAN CORPUSCULAR HGB CONC 27.1 % (32.0-36.0)
[2016-10-02 12:01] VITALS: BP 139/68; PULSE 70; RESP 21; TEMP 96.9; O2SAT 99
[2016-10-02 12:38] LABS: AUTOMATED NEUTROPHIL # 5.6 TH/MM3 (1.8-7.7); BASOPHIL # 0.1 TH/MM3 (0-0.2); BASOPHIL % 1.3 % (0.0-2.0); EOSINOPHIL # 0.3 TH/MM3 (0-0.4); EOSINOPHIL % 2.4 % (0.0-4.0); LYMPH % 36.5 % (9.0-44.0); LYMPHOCYTE # 3.8 TH/MM3 (1.0-4.8); MEAN CELL VOLUME 57.6 FL (80.0-100.0); MEAN CORPUSCULAR HEMOGLOBIN 15.6 PG (27.0-34.0); MONO % 6.2 % (0.0-8.0); NEUT % 53.6 % (16.0-70.0); PLATELET COUNT 730 TH/MM3 (150-450); RED BLOOD COUNT 5.55 MIL/MM3 (4.00-5.30); RED CELL DISTRIBUTION WIDTH 40.8 % (11.6-17.2); WHITE BLOOD COUNT 10.5 TH/MM3 (4.0-11.0)
[2016-10-02 12:42] LABS: HEMO FLAGS AUTO DIFF
[2016-10-02 12:51] LABS: APTT (PATIENT) 64.4 SEC (24.3-30.1)
[2016-10-02 12:57] LABS: BICARBONATE 31.1 MEQ/L (21.0-32.0)
[2016-10-02 13:11] LABS: POTASSIUM 3.9 MEQ/L (3.5-5.1)
[2016-10-02 13:15] LABS: BASOPHILS 2 % (0-2); CORRECTED NUCLEATED RBC 2 /100 WBC (0-0); EOSINOPHILS 3 % (0-4); NEUTROPHIL # MANUAL DIFF 6.6 TH/MM3 (1.8-7.7); POLYS (SEG NEUTROPHILS) 63 % (16-70); WBC DIFF SAMPLE 100
[2016-10-02 13:16] LABS: PLATELET ESTIMATE SMEAR HIGH (NORMAL); PLATELET MORPHOLOGY NORMAL (NORMAL); SCAN/DIFF FINAL DIFF MANUAL
[2016-10-02 13:17] LABS: KERATOCYTES OCC (NORMAL); OVALOCYTES 1+ (NORMAL)
[2016-10-02 16:00] VITALS: BP 140/64; PULSE 61; RESP 22; TEMP 97.2; O2SAT 99
[2016-10-02 18:43] LABS: APTT (PATIENT) 45.8 SEC (24.3-30.1)
[2016-10-02 20:00] VITALS: BP 142/70; PULSE 58; RESP 18; TEMP 97.1; O2SAT 98
[2016-10-02 21:08] LABS: MEAN CORPUSCULAR HGB CONC 27.5 % (32.0-36.0)
[2016-10-02] MEDS: ZOLPIDEM TARTRATE 5 MG TAB PO PRN (21:50)
[2016-10-02] MEDS: HEPARIN-D5W INJ 250 ML IV SCH (23:47)
[2016-10-02 23:51] LABS: THROMBIN TIME FOR LA ND sec (13-19)
[2016-10-03] VITALS: BP 148/90; PULSE 60; RESP 17; TEMP 96; O2SAT 97
[2016-10-03 00:39] LABS: APTT (PATIENT) 44.2 SEC (24.3-30.1)
[2016-10-03] MEDS ORDERED: LOPERAMIDE HCL 2 MG CAP PO SCH (01:10)
[2016-10-03] MEDS: oxyCODONE/ACETAMINOPHEN 10 MG/325 MG TAB PO PRN ×5 (01:30→20:28)
[2016-10-03 04:00] VITALS: BP 147/92; PULSE 60; RESP 17; TEMP 96.9; O2SAT 96
[2016-10-03 07:02] LABS: HEMATOCRIT 30.6 % (35.0-46.0); MEAN CELL VOLUME 58.4 FL (80.0-100.0); PLATELET COUNT 663 TH/MM3 (150-450); RED BLOOD COUNT 5.24 MIL/MM3 (4.00-5.30); WHITE BLOOD COUNT 7.9 TH/MM3 (4.0-11.0)
[2016-10-03 07:06] LABS: APTT (PATIENT) 43.7 SEC (24.3-30.1); REVIEW FLAG FINAL
--- NOTE | 2016-10-03 07:52 | HHI.PR ---
Subjective Remarks Follow up for bilateral upper ext DVT, menometrorrhagia. Ms. Lyle is doing well. No acute concerns. Ambulating well, tolerating diet well. Potential discharge home tomorrow once cleared by Bottle Assembler. Objective Vitals Vital Signs Date Time Temp Pulse Resp B/P Pulse Ox O2 Delivery O2 Flow Rate FiO2 10/03/16 04:00 96.9 60 17 147/92 96 10/03/16 00:00 96.0 60 17 148/90 97 10/02/16 20:00 97.1 58 18 142/70 98 10/02/16 16:00 97.2 61 22 140/64 99 10/02/16 12:01 96.9 70 21 139/68 99 10/02/16 08:34 96.8 53 21 148/66 99 I/O 10/02/16 10/02/16 10/02/16 10/03/16 10/03/16 10/03/16 07:00 15:00 23:00 07:00 15:00 23:00 Intake Total 480 ml 557 ml 620 ml 240 ml Balance 480 ml 557 ml 620 ml 240 ml Intake Oral 480 ml 480 ml 620 ml 240 ml IV Total 77 ml # Voids 2 2 4 # Bowel Movements 2 4 Result Diagram: 10/03/16 0535 10/02/16 1200 Objective Remarks GENERAL: Alert, oriented 3, NAD. SKIN: Warm and dry. HEAD: Normocephalic. EYES: No scleral icterus. No injection or drainage. NECK: Supple, trachea midline. No JVD or lymphadenopathy. CARDIOVASCULAR: Regular rate and rhythm without murmurs, gallops, or rubs. RESPIRATORY: Breath sounds equal bilaterally. No accessory muscle use. GASTROINTESTINAL: Abdomen soft, non-tender, nondistended. MUSCULOSKELETAL: No cyanosis, or edema. BACK: Nontender without obvious deformity. No CVA tenderness. Procedures None A/P Problem List: (1) Acute deep vein thrombosis (DVT) of both upper extremities ICD Code: I82.623 Status: Acute (2) Menometrorrhagia ICD Code: N92.1 Status: Acute (3) Iron deficiency anemia ICD Code: D50.9 Status: Acute Assessment and Plan 46-year-old female with a history of menometrorrhagia, previous upper ext DVT who presented to the ED due to worsening upper extremity pain and swelling. ED work up indicated bilateral upper extremity DVT. She was also found to have anemia with hemoglobin of 6.6 without patient has known menometrorrhagia. Unfortunately, patient has not been able to follow up with physicians including hematology or finance manager due to lack of insurance. - Acute deep vein thrombosis of the upper extremities - Patient has a history of upper ext DVT for which she was on warfarin for 6 months. - Discussed with Dr. Chau (Hematology) who recommends heparin for now then oral anticoagulants for 3 months then chronic therapy with half the dose of oral anticoagulant. - Anticoagulation with probably Apixaban 5mg BID for 3 months then 2.5mg BID. - Will discuss with Case management tomorrow regarding patients assistance and a way for the patient to get Apixaban. Chronic iron deficiency anemia - Patient received 2 units of PRBCs. - Hematology provided 1800mg IV Iron on 10/01/2016. Dr. Chau will follow in the outpatient setting. Menometrorrhagia - Given the patient's persistent anemia and recurrent DVT, she needs anticoagulation. - WEB SERVICES PROFESSIONAL performed D&C and endometrial ablation. - WEB SERVICES PROFESSIONAL recommends continuation of heparin through the weekend and on 2016, potential discharge after uterine artery embolization by IR. Full code. Heparin drip. Discussed with Hematology. Possible discharge on 10/04/2016. Rosa Velazquez DO Oct 03, 2016 7:52 am
[2016-10-03 08:04] VITALS: BP 142/84; PULSE 52; RESP 21; TEMP 97.7; O2SAT 96
[2016-10-03] MEDS: DOCUSATE SODIUM 50 MG/SENNA 8.6 MG TAB PO SCH ×2 (09:00→20:29)
[2016-10-03] MEDS: SODIUM CHLORIDE 0.9% FLUSH 10 ML FLUSH IV FLUSH SCH ×2 (09:00→20:28)
[2016-10-03] MEDS: SODIUM CHLORIDE 0.9% FLUSH 10 ML FLUSH IVF SCH (09:00)
--- NOTE | 2016-10-03 09:33 | PD.ONC.PN ---
Subjective Subjective Remarks Afebrile overnight. Patient resting in bed in nad. Scant vaginal bleeding overnight. Objective Data Date Time Temp Pulse Resp B/P Pulse Ox O2 Delivery O2 Flow Rate FiO2 10/03/16 08:04 97.7 52 21 142/84 96 10/03/16 04:00 96.9 60 17 147/92 96 10/03/16 00:00 96.0 60 17 148/90 97 10/02/16 20:00 97.1 58 18 142/70 98 10/02/16 16:00 97.2 61 22 140/64 99 10/02/16 12:01 96.9 70 21 139/68 99 10/03/16 10/03/16 10/03/16 07:00 15:00 23:00 Intake Total 240 ml Balance 240 ml Result Diagram: 10/03/16 0535 10/02/16 1200 Laboratory Results Laboratory Tests Test 10/02/16 10/02/16 10/02/16 10/03/16 12:00 18:00 23:45 05:35 White Blood Count 10.5 TH/MM3 7.9 TH/MM3 Red Blood Count 5.55 MIL/MM3 5.24 MIL/MM3 Hemoglobin 8.7 GM/DL 8.4 GM/DL Hematocrit 32.0 % 30.6 % Mean Corpuscular Volume 57.6 FL 58.4 FL Mean Corpuscular Hemoglobin 15.6 PG 16.0 PG Mean Corpuscular Hemoglobin 27.1 % 27.5 % Concent Red Cell Distribution Width 40.8 % 41.0 % Platelet Count 730 TH/MM3 663 TH/MM3 Mean Platelet Volume 9.0 FL 8.6 FL Neutrophils (%) (Auto) 53.6 % Lymphocytes (%) (Auto) 36.5 % Monocytes (%) (Auto) 6.2 % Eosinophils (%) (Auto) 2.4 % Basophils (%) (Auto) 1.3 % Neutrophils # (Auto) 5.6 TH/MM3 Lymphocytes # (Auto) 3.8 TH/MM3 Monocytes # (Auto) 0.7 TH/MM3 Eosinophils # (Auto) 0.3 TH/MM3 Basophils # (Auto) 0.1 TH/MM3 CBC Comment AUTO DIFF Differential Total Cells 100 Counted Neutrophils % (Manual) 63 % Lymphocytes % 29 % Monocytes % 3 % Eosinophils % 3 % Basophils % 2 % Neutrophils # (Manual) 6.6 TH/MM3 Nucleated Red Blood Cells 2 /100 WBC Differential Comment FINAL DIFF MANUAL Platelet Estimate HIGH Platelet Morphology Comment NORMAL Ovalocytes 1+ Keratocytes OCC Activated Partial 64.4 SEC 45.8 SEC 44.2 SEC 43.7 SEC Thromboplast Time Sodium Level 142 MEQ/L Potassium Level 3.9 MEQ/L Chloride Level 106 MEQ/L Carbon Dioxide Level 31.1 MEQ/L Anion Gap 5 MEQ/L Blood Urea Nitrogen 10 MG/DL Creatinine 1.06 MG/DL Estimat Glomerular Filtration 67 ML/MIN Rate Random Glucose 108 MG/DL Calcium Level 8.4 MG/DL Administered Medications Medications (Trade) Dose Ordered Sig/Patricia Route PRN Reason Start Time Stop Time Status Last Admin Dose Admin Sodium Chloride (NS Flush) 2 ml BID IV FLUSH 09/28/16 21:00 10/02/16 20:02 Senna/Docusate Sodium (Lauren-Colace) 1 tab BID PO 09/28/16 21:00 10/01/16 20:04 Magnesium Hydroxide (Milk Of Magnesia Liq) 30 ml Q12H PRN PO MILD - MODERATE CONSTIPATION 09/28/16 18:45 10/01/16 20:07 Lactulose (Lactulose Liq) 30 ml DAILY PRN PO SEVERE CONSITIPATION 09/28/16 18:45 10/01/16 11:34 Sodium Chloride (NS Flush) DAILY IVF 09/30/16 09:00 10/02/16 08:40 Oxycodone/ Acetaminophen (Percocet 5-325 Mg) 1 tab Q4H PRN PO PAIN 1-5 09/29/16 20:15 10/01/16 16:13 Zolpidem Tartrate (Ambien) 5 mg HS PRN PO INSOMNIA 09/29/16 20:15 10/02/16 21:50 Oxycodone/ Acetaminophen 1 tab 1 tab Q4H PRN PO PAIN 6-10 10/01/16 14:30 10/03/16 05:35 Heparin Sodium/ Dextrose (Heparin-D5W Inj) 250 ml @ 0 mls/hr TITRATE IV 10/02/16 12:00 10/02/16 23:47 Objective Remarks GENERAL: Elderly female upright in bed in nad. SKIN: Warm and dry. central line, right chest wall HEAD: Normocephalic. EYES: No injection or drainage. NECK: Supple, trachea midline. CARDIOVASCULAR: +S1/S2 RESPIRATORY: Breath sounds equal bilaterally. No accessory muscle use. GASTROINTESTINAL: Abdomen soft, non-tender, nondistended. EXTREMITIES: No cyanosis NEUROLOGICAL: awake and alert, normal speech. moving all extremities. Assessment/Plan Assessment 46y/o female with iron deficiency anemia secondary to vaginal bleeding as well as bilateral upper extremity venous thrombosis. s/p D&C, 10/01/16 Plan 1. anemia: monitor CBC. no transfusion today. 2. bilateral upper extremity DVT: continue heparin gtt over the weekend. patient has no insurance, will consult case management to assist--if she is on patient assistance can d/c on Apixiban 3. Vaginal bleeding: treatment per SUPERVISOR COSTUMING. patient with large fibroid, s/p D&C on and will undergo uterine artery embolization in IR on Tuesday Attending Statement The exam, history, and the medical decision-making described in the above note were completed with the assistance of the mid-level provider. I reviewed and agree with the findings presented. I attest that I had a [id number] encounter with the patient on the same day, and personally performed and documented my assessment and findings in the medical record. Patient seen and examined, medications, labs and vital signs were reviewed. PTT has been in the high - mid 40s second range. Agree with physical exam findings documented above. She remains on heparin drip, continues to feel decreasing swelling of the upper extremities specifically in the forearms. Denies vaginal bleeding. Plan is to proceed with arterial embolization of the uterine fibroid which is thought to be the culprit lesion causing the menorrhagia. Continue heparin drip until tomorrow. Following that she may be transitioned to an oral anticoagulant. H&H stable as of this morning. Marina Vásquez Oct 03, 2016 09:33 Natanael Muro MD Oct 03, 2016 10:55
[2016-10-03 12:11] VITALS: BP 135/73; PULSE 55; RESP 21; TEMP 97.5; O2SAT 97
[2016-10-03 16:01] VITALS: BP 142/77; PULSE 53; RESP 20; TEMP 98; O2SAT 97
[2016-10-03 17:53] LABS: PHOSPHATIDYLSERINE AB IGA LESS THAN 20.0 U/mL (()); PHOSPHATIDYLSERINE AB IGM LESS THAN 25.0 U/mL (())
[2016-10-03 20:00] VITALS: BP 143/75; PULSE 67; RESP 18; TEMP 97.8; O2SAT 97
[2016-10-04] VITALS (14 sets, daily range): BP systolic 150–222; BP diastolic 60–123; PULSE 52–82; RESP 16–34; TEMP 96.7–98.1; O2SAT 93–100
[2016-10-04 00:02] LABS: MEAN CORPUSCULAR HGB CONC 27.9 % (32.0-36.0)
[2016-10-04] MEDS: oxyCODONE/ACETAMINOPHEN 10 MG/325 MG TAB PO PRN (05:29)
[2016-10-04] MEDS: HEPARIN-D5W INJ 250 ML IV SCH (05:33)
[2016-10-04 06:30] LABS: MEAN CELL VOLUME 58.9 FL (80.0-100.0); MEAN CORPUSCULAR HEMOGLOBIN 16.4 PG (27.0-34.0); PLATELET COUNT 638 TH/MM3 (150-450); RED BLOOD COUNT 5.44 MIL/MM3 (4.00-5.30); RED CELL DISTRIBUTION WIDTH 41.2 % (11.6-17.2); WHITE BLOOD COUNT 7.2 TH/MM3 (4.0-11.0)
[2016-10-04 06:39] LABS: REVIEW FLAG FINAL
[2016-10-04 06:56] LABS: APTT (PATIENT) 28.9 SEC (24.3-30.1)
--- NOTE | 2016-10-04 08:29 | HHI.PR ---
Subjective Remarks Follow up for bilateral upper ext DVT, menometrorrhagia. Patient is currently doing well, waiting for IR procedure today. No fever, chills. No bleeding. Objective Vitals Vital Signs Date Time Temp Pulse Resp B/P Pulse Ox O2 Delivery O2 Flow Rate FiO2 10/04/16 04:00 96.7 59 18 150/80 96 10/04/16 00:00 97.4 66 18 168/60 96 10/03/16 20:00 97.8 67 18 143/75 97 10/03/16 16:01 98.0 53 20 142/77 97 10/03/16 12:11 97.5 55 21 135/73 97 I/O 10/03/16 10/03/16 10/03/16 10/04/16 10/04/16 10/04/16 07:00 15:00 23:00 07:00 15:00 23:00 Intake Total 240 ml 480 ml 720 ml 480 ml Balance 240 ml 480 ml 720 ml 480 ml Intake Oral 240 ml 480 ml 720 ml 480 ml # Voids 3 3 Result Diagram: 10/04/16 0519 10/02/16 1200 Imaging Last Impressions Upper Extremity CTA 09/30/16 0000 Signed Impressions: Service Date/Time: September 15:38 - CONCLUSION: 1. Nondiagnostic CTV examination in this patient with history of suspected extensive bilateral upper extremity DVTs, as above. The central jugular veins to the junction of the brachiocephalic veins are patent. The subclavian and more peripheral veins are not adequately opacified for evaluation. 2. Normal CT angiography of the upper extremities with widely patent proximal arch vessels. Ez Iglesias MD Pelvis Ultrasound 09/29/16 0000 Signed Impressions: Service Date/Time: Thursday, September 29, 2016 20:18 - CONCLUSION: 1. 6.9 cm uterine fibroid, increased in size from comparison exam in February 2015. 2. Small left ovarian cyst. Right ovary not visualized. Colin Davis MD Upper Extremity Ultrasound 09/28/16 0000 Signed Impressions: Service Date/Time: Wednesday, September 28, 2016 16:36 - CONCLUSION: Thrombus in the brachial and basilic veins bilaterally. Eyal Fox MD Objective Remarks GENERAL: Alert, oriented 3, NAD. SKIN: Warm and dry. HEAD: Normocephalic. EYES: No scleral icterus. No injection or drainage. NECK: Supple, trachea midline. No JVD or lymphadenopathy. CARDIOVASCULAR: Regular rate and rhythm without murmurs, gallops, or rubs. RESPIRATORY: Breath sounds equal bilaterally. No accessory muscle use. GASTROINTESTINAL: Abdomen soft, non-tender, nondistended. MUSCULOSKELETAL: No cyanosis, or edema. BACK: Nontender without obvious deformity. No CVA tenderness. Procedures None A/P Problem List: (1) Acute deep vein thrombosis (DVT) of both upper extremities ICD Code: I82.623 Status: Acute (2) Menometrorrhagia ICD Code: N92.1 Status: Acute (3) Iron deficiency anemia ICD Code: D50.9 Status: Acute Assessment and Plan 46-year-old female with a history of menometrorrhagia, previous upper ext DVT who presented to the ED due to worsening upper extremity pain and swelling. ED work up indicated bilateral upper extremity DVT. She was also found to have anemia with hemoglobin of 6.6 without patient has known menometrorrhagia. Unfortunately, patient has not been able to follow up with physicians including hematology or rn support services due to lack of insurance. - Acute deep vein thrombosis of the upper extremities - Patient has a history of upper ext DVT for which she was on warfarin for 6 months. - Discussed with Dr. Chau (Hematology) who recommends heparin for now then oral anticoagulants for 3 months then chronic therapy with half the dose of oral anticoagulant. - Anticoagulation with probably Apixaban 5mg BID for 3 months then 2.5mg BID. - Consult case management regarding patient's assistance and apixaban. - Uterine artery embolization by interventional radiology today. Possible discharge after procedure. Chronic iron deficiency anemia - Patient received 2 units of PRBCs. - Hematology provided 1800mg IV Iron on 10/01/2016. Dr. Chau will follow in the outpatient setting. Menometrorrhagia - Given the patient's persistent anemia and recurrent DVT, she needs anticoagulation. - THERAPEUTIC RADIOLOGIST performed D&C and endometrial ablation. - THERAPEUTIC RADIOLOGIST recommends continuation of heparin through the weekend and on 2016, potential discharge after uterine artery embolization by IR. Full code. Heparin drip. Discharge plan : Likely discharge after uterine artery embolization. Rosa Velazquez DO Oct 04, 2016 8:29 am
[2016-10-04] MEDS: SODIUM CHLORIDE 0.9% FLUSH 10 ML FLUSH IVF SCH (09:40)
[2016-10-04] MEDS: SODIUM CHLORIDE 0.9% FLUSH 10 ML FLUSH IV FLUSH SCH ×2 (09:40→21:42)
[2016-10-04] MEDS ORDERED: MIDAZOLAM HCL 5 MG/5 ML VIAL ONE ×2 (10:21→10:58)
[2016-10-04] MEDS ORDERED: fentaNYL CITRATE 250 MCG/5 ML AMP ONE ×2 (10:22→10:59)
[2016-10-04] MEDS ORDERED: HEPARIN SODIUM - IV 10,000 UNITS/10 ML VIAL ONE (10:22)
[2016-10-04] MEDS ORDERED: VERAPAMIL HCL 5 MG/2 ML VIAL ONE (10:22)
[2016-10-04] MEDS ORDERED: NITROGLYCERIN 2% OINT 1 GM PACKET ONE (11:37)
[2016-10-04] MEDS ORDERED: ceFAZolin 2 GM PREMIX 50 ML ONE (11:51)
[2016-10-04] MEDS: DOCUSATE SODIUM 50 MG/SENNA 8.6 MG TAB PO SCH ×2 (13:00→21:36)
[2016-10-04] MEDS ORDERED: GELATIN 12 MM/7 MM FOAM I-ARTERIAL ONE (13:30)
[2016-10-04] MEDS ORDERED: MIDAZOLAM HCL 2 MG/2 ML VIAL ONE (13:39)
--- NOTE | 2016-10-04 14:38 | PD.RAD ---
Post Procedure Progress Note Pre Procedure Diagnosis: (1) Menorrhagia Post Procedure Diagnosis: (1) Menorrhagia Procedure Date: Oct 04, 2016 Supervising Radiologist: Ez Iglesias Proceduralist/Assist: Jeanine Craft, RT(R)(CV), Sigrid Song, RT(R), Sandra Torres, RT(R)() Anesthesia: Conscious Sedation Plan of Activity Patient to Unit: Nursing Unit Patient Condition: Good Additional Comments: Bilateral UFE utilizing PVA and gelfoam. LUE venogram -> thrombosed brachial and more peripherally. Centrally the axillary, subclavian and svc are patent. See PACS Report for procedural detail/treatment Ez Iglesias MD Oct 04, 2016 14:38
[2016-10-04] MEDS ORDERED: IODIXANOL 320 MG/ML 100 ML VIAL (for Cath Lab) I-ARTERIAL ONE (14:40)
[2016-10-04] MEDS ORDERED: HYDROmorphone HCL PF 2 MG/ML VIAL ONE (14:41)
[2016-10-04] MEDS ORDERED: NALOXONE HCL 0.4 MG/ML AMP IV PRN (14:45)
[2016-10-04] MEDS ORDERED: diphenhydrAMINE HCL 25 MG CAP PO PRN (14:45)
[2016-10-04] MEDS: HYDROmorphone HCL PCA 6 MG/30 ML IV SCH (15:12)
[2016-10-04] MEDS: KETOROLAC TROMETHAMINE 30 MG/ML (IVP) VIAL IVP SCH ×2 (15:40→19:01)
[2016-10-04] MEDS ORDERED: hydrALAZINE HCL 20 MG/ML VIAL IV PUSH ONE (15:45)
[2016-10-04] MEDS: ONDANSETRON HCL 4 MG/2 ML VIAL IV PRN (16:38)
[2016-10-04] MEDS ORDERED: HYDROmorphone HCL PF 1 MG/ML VIAL IV ONE (17:30)
[2016-10-04] MEDS: cloNIDine HCL 0.1 MG TAB PO PRN (17:42)
[2016-10-04 18:31] LABS: APTT (PATIENT) 29.7 SEC (24.3-30.1)
[2016-10-04] MEDS: PCA - TOTAL MG DILAUDID DELIVERED PER SHIFT OTHER SCH (22:00)
[2016-10-04] MEDS: hydrALAZINE HCL 25 MG TAB PO SCH (22:31)
[2016-10-05] VITALS (8 sets, daily range): BP systolic 165–187; BP diastolic 74–92; PULSE 59–68; RESP 16–18; TEMP 97.8–99.1; O2SAT 93–98
[2016-10-05] MEDS: cloNIDine HCL 0.1 MG TAB PO PRN ×3 (01:07→20:33)
[2016-10-05 03:36] LABS: APTT (PATIENT) 44.3 SEC (24.3-30.1)
[2016-10-05] MEDS: PCA - TOTAL MG DILAUDID DELIVERED PER SHIFT OTHER SCH ×3 (05:57→22:00)
[2016-10-05] MEDS: hydrALAZINE HCL 25 MG TAB PO SCH ×3 (06:00→22:13)
--- NOTE | 2016-10-05 07:44 | RADRPT ---
EXAM DATE/TIME: 10/04/2016 09:54 [facility] COMPARISON: No previous studies available for comparison. INDICATIONS : 46 year-old female with history of bilateral upper extremity DVTs. Patient has had multiple periphera l IV lines recently. Venography is performed to evaluate extent of DVT and most importantly evaluate for central stenosis. MEDICAL HISTORY : History of bilateral upper extremity DVT, thrombophlebitis, anemia, large uterine fibroid, menometror rhagia. SURGICAL HISTORY : History of D and C, surgery for Jn's angina, tubal ligation, tonsillectomy. ENCOUNTER: Initial ACUITY: 1 week PAIN SCORE: 8/10 LOCATION: Right side of neck FLUORO TIME: 41.6 minutes IMAGE SERIES: 16 ACCESS SITE: Left arm CONTRAST: 105 MEDICATION(S): 1.) 10.5 mg midazolam (Versed) IV 2.) 525 mcg fentanyl (Sublimaze) IV PROCEDURE : 1. Ultrasound-guided venipuncture. 2. Venogram. The risks, benefits and alternatives to the procedure were explained and verbal and written consent w as obtained. The site was prepped in sterile fashion. Full sterile technique was used, including ca p, mask, sterile gloves and gown and a large sterile sheet. Hand hygiene and 2% chlorhexidine and/or betadine/alcohol prep was utilized per protocol for cutaneous antisepsis. The skin and subcutaneous tissues were infiltrated with local anesthetic solution. Contrast was injected through an antecubital IV line and DSA images were obtained over the left arm, shoulder, and chest. IV line was then flushed and removed. Findings: There is extensive nearly occlusive acute appearing thrombus involving the brachial vein and more per ipheral veins in the tecubital and proximal forearm. Centrally, the axillary, subclavian, and SVC ar e patent. There is potentially mild to moderate stenosis of the central subclavian vein but this does not appear to be significantly flow-limiting. CONCLUSION: 1. Left upper extremity venography confirms acute nearly occlusive thrombus involving the left brachi al vein extending peripherally to antecubital and proximal forearm veins. 2. More centrally the outflow veins are patent although there is non-flow limiting mild to moderate s tenosis of the central subclavian vein. Ez Iglesias MD on October 05, 2016 at 7:32 Board Certified Radiologist. This report was verified electronically.
--- NOTE | 2016-10-05 07:50 | RADRPT ---
EXAM DATE/TIME: 10/04/2016 09:54 [facility] COMPARISON: No previous studies available for comparison. INDICATIONS : Patient is in need of an amgiogram with embolization of bilateral uterine arteries due to menometrorr hagia. MEDICAL HISTORY : History of bilateral upper extremity DVT, thrombophlebitis, anemia, large uterine fibroid. SURGICAL HISTORY : History of D and C, surgery for Jn's angina, tubal ligation, tonsillectomy. ENCOUNTER: Initial ACUITY: 1 week PAIN SCORE: 8/10 LOCATION: Right side of neck FLUORO TIME: 41.6 minutes IMAGE SERIES: 16 ACCESS SITE: Bilateral Femoral artery and left radial artery SEDATION TIME: 180 minutes CONTRAST: 1.) 105 cc Visipaque (iodixanol) MEDICATION(S): 1.) 10.5 mg midazolam (Versed) IV 2.) 525 mcg fentanyl (Sublimaze) IV 3.) 3000 units Heparin IV 4.) 800 mcg Nitroglycerin IART 5.) 2 mg Verapamil IART 6.) 2 Nitroglyercin paste inches Topical Vancomycin within 2 hrs of procedure, Ancef (or alternative) within 1 hr of procedure. DEVICE(S): 1.) Bilateral uterine artery 355-500 microns PVA 2.) Bilateral uterine artery 12-7mm Gelfoam PROCEDURE : 1. Ultrasound-guided puncture of the left radial artery. 2. Ultrasound-guided puncture of the right and left common femoral arteries. 3. Pelvic Angiography 4. Left internal iliac artery arteriogram. 5. Left uterine artery arteriogram. 6. Embolization of the left uterine artery. 7. Right internal iliac artery arteriogram. 8. Right uterine artery arteriogram. 9. Embolization of the right uterine artery. 10. Conscious sedation with continuous EKG and oximetry monitoring. The risks, benefits and alternatives to the procedure were explained and verbal and written consent w as obtained. The site was prepped in sterile fashion. Full sterile technique was used, including ca p, mask, sterile gloves and gown and a large sterile sheet. Hand hygiene and 2% chlorhexidine and/or betadine/alcohol prep was utilized per protocol for cutaneous antisepsis. The skin and subcutaneous tissues were infiltrated with local anesthetic solution. Patient passed a Barbeau test on the left side. Ultrasound evaluation of the left wrist demonstrate a patent left radial artery. Single image was obtained and placed in the PACS archive. Left radial art mary was accessed with a micropuncture needle and subsequently placement 6 Libyan sheath was placed. 5 Libyan flush catheter was then advanced into the distal abdominal aorta and pelvic angiography was p erformed in AP projection. The catheter was then exchanged for a 5 Libyan slip bones catheter. There was significant resistance to passage of catheter and felt to represent significant vasospasm in the forearm. This was resistant to conservative medical management with nitroglycerin paste and IA nitrog lycerin/verapamil. Therefore, decision was made to perform femoral punctures instead. With ultrasound and fluoroscopic guidance the left femoral artery was punctured. An Omni Flush gurjit ter was placed over aortic bifurcation into the right internal iliac artery where imaging was perform ed to identify the uterine artery. The uterine artery was subsequent catheterized and angiography wa s performed demonstrating multiple feeding vessels supplying the uterine fibroids. Embolization was performed using the prescribed size of polyvinyl alcohol and Gelfoam slurry to complete stasis. Foll owup angiography from the internal iliac vessel demonstrates complete stasis and no antegrade flow wi thin the right uterine artery. Several attempts to perform ipsilateral left internal iliac artery cat heterization were unsuccessful and therefore the contralateral femoral artery puncture was performed. An Omni Flush catheter was then used to select the contralateral left internal iliac artery where jimbo ging was performed to identify the uterine artery. The uterine artery was subsequently catheterized and angiography was performed demonstrating multiple feeding vessels supplying the uterine fibroids. Embolization was performed using the prescribed dose of polyvinyl alcohol and Gelfoam slurry to comp lete stasis. Followup angiography from the internal iliac vessel demonstrates complete stasis and no antegrade flow within the left uterine artery. Conscious sedation was performed with the prescribed dosages and duration as above in the presence of an independent trained radiology nurse to assist in the monitoring of the patient. EKG and oximetry remained stable throughout the procedure. The patient tolerated the procedure well and there were n o complications. The patient was sent to post anesthesia recovery in stable condition. CONCLUSION: Uncomplicated uterine artery embolization as above. Ez Iglesias MD on October 05, 2016 at 7:42 Board Certified Radiologist. This report was verified electronically.
[2016-10-05] MEDS: HYDROmorphone HCL PCA 6 MG/30 ML IV SCH (07:57)
[2016-10-05] MEDS: DOCUSATE SODIUM 50 MG/SENNA 8.6 MG TAB PO SCH ×2 (07:58→22:13)
[2016-10-05] MEDS: LACTULOSE SYRUP 20 GM/30 ML CUP PO PRN (08:00)
[2016-10-05] MEDS: SODIUM CHLORIDE 0.9% FLUSH 10 ML FLUSH IVF SCH (08:01)
[2016-10-05] MEDS: SODIUM CHLORIDE 0.9% FLUSH 10 ML FLUSH IV FLUSH SCH ×2 (08:01→20:40)
--- NOTE | 2016-10-05 08:10 | HHI.PR ---
Subjective Remarks Feeling better, no SOB or CP. Vaginal bleeding is scant. Having some menstrual like cramps but dilaudid pump is working well. Objective Vital Signs Date Time Temp Pulse Resp B/P Pulse Ox O2 Delivery O2 Flow Rate FiO2 10/05/16 05:57 16 10/05/16 05:30 98.6 62 18 174/81 94 10/05/16 01:06 167/77 10/05/16 00:45 99.1 68 18 165/74 94 10/04/16 22:00 16 10/04/16 20:00 97.5 76 18 176/84 98 10/04/16 17:30 82 177/81 10/04/16 17:00 97.6 73 18 187/90 100 10/04/16 16:30 64 20 184/94 93 10/04/16 16:15 56 20 193/107 94 10/04/16 16:00 53 20 204/109 95 10/04/16 15:45 52 20 211/113 95 10/04/16 15:30 217/116 10/04/16 15:15 220/118 10/04/16 15:12 34 10/04/16 15:00 222/123 10/04/16 14:40 97.8 58 34 212/112 94 I/O 10/04/16 10/04/16 10/04/16 10/05/16 10/05/16 10/05/16 07:00 15:00 23:00 07:00 15:00 23:00 Intake Total 480 ml 260 ml 480 ml Output Total 1500 ml 250 ml Balance 480 ml -1240 ml 230 ml Intake Oral 480 ml 480 ml IV Total 260 ml Output Urine Total 1500 ml 250 ml # Voids 3 Result Diagram: 10/04/16 0519 10/02/16 1200 Other Results Chest is clear CV RRR Abd is soft and non tender Incision sites are healing well Pelvic no blood Ext no CCE upper arms have less swelling. Assessment and Plan Assessment and Plan 1. Severe menometrorrhagia. most likely due to the large fibroid as the endometrial lining was only 3 mm. She had uterine artery embolization yesterday and since has had high blood pressure and is on meds She is also still on the dilaudid pump. Will try to ween her off the pump today and she may go home from my point of view. I will write her some pain meds to go home. 2. Bilateral upper extremity DVTs The CTA was not conclusive and I will go to see the venogram today with radiology. 3. Severe anemia.. Her blood count is stable and the iron should kick in soon. RTO in 2 -4 weeks I will order a follow up U/S as well to see how the fibriod is shrinking. Discharge Planning Home soon. Erika White MD Oct 05, 2016 08:10
--- NOTE | 2016-10-05 08:36 | HHI.PR ---
Subjective Remarks Follow up for bilateral upper ext DVT, menometrorrhagia. Patient is resting well. She complains of pain and using Dilaudid pump. No fever, chills. Objective Vitals Vital Signs Date Time Temp Pulse Resp B/P Pulse Ox O2 Delivery O2 Flow Rate FiO2 10/05/16 07:57 16 10/05/16 05:57 16 10/05/16 05:30 98.6 62 18 174/81 94 10/05/16 01:06 167/77 10/05/16 00:45 99.1 68 18 165/74 94 10/04/16 22:00 16 10/04/16 20:00 97.5 76 18 176/84 98 10/04/16 17:30 82 177/81 10/04/16 17:00 97.6 73 18 187/90 100 10/04/16 16:30 64 20 184/94 93 10/04/16 16:15 56 20 193/107 94 10/04/16 16:00 53 20 204/109 95 10/04/16 15:45 52 20 211/113 95 10/04/16 15:30 217/116 10/04/16 15:15 220/118 10/04/16 15:12 34 10/04/16 15:00 222/123 10/04/16 14:40 97.8 58 34 212/112 94 I/O 10/04/16 10/04/16 10/04/16 10/05/16 10/05/16 10/05/16 07:00 15:00 23:00 07:00 15:00 23:00 Intake Total 480 ml 260 ml 480 ml Output Total 1500 ml 250 ml Balance 480 ml -1240 ml 230 ml Intake Oral 480 ml 480 ml IV Total 260 ml Output Urine Total 1500 ml 250 ml # Voids 3 Result Diagram: 10/04/16 0519 10/02/16 1200 Imaging Last Impressions Venogram 10/04/16 0000 Signed Impressions: Service Date/Time: Tuesday, October 04, 2016 09:54 - CONCLUSION: 1. Left upper extremity venography confirms acute nearly occlusive thrombus involving the left brachial vein extending peripherally to antecubital and proximal forearm veins. 2. More centrally the outflow veins are patent although there is non-flow limiting mild to moderate stenosis of the central subclavian vein. Ez Iglesias MD Embolization, Transcatheter 10/04/16 Signed Impressions: Service Date/Time: Tuesday, October 04, 2016 09:54 - CONCLUSION: Uncomplicated uterine artery embolization as above. Ez Iglesias MD Upper Extremity CTA 09/30/16 Signed Impressions: Service Date/Time: September 15:38 - CONCLUSION: 1. Nondiagnostic CTV examination in this patient with history of suspected extensive bilateral upper extremity DVTs, as above. The central jugular veins to the junction of the brachiocephalic veins are patent. The subclavian and more peripheral veins are not adequately opacified for evaluation. 2. Normal CT angiography of the upper extremities with widely patent proximal arch vessels. Ez Iglesias MD Pelvis Ultrasound 09/29/16 Signed Impressions: Service Date/Time: Thursday, September 29, 2016 20:18 - CONCLUSION: 1. 6.9 cm uterine fibroid, increased in size from comparison exam in February 2015. 2. Small left ovarian cyst. Right ovary not visualized. Colin Davis MD Upper Extremity Ultrasound 09/28/16 Signed Impressions: Service Date/Time: Wednesday, September 28, 2016 16:36 - CONCLUSION: Thrombus in the brachial and basilic veins bilaterally. Eyal Fox MD Objective Remarks GENERAL: Alert, oriented 3, NAD. SKIN: Warm and dry. HEAD: Normocephalic. EYES: No scleral icterus. No injection or drainage. NECK: Supple, trachea midline. No JVD or lymphadenopathy. CARDIOVASCULAR: Regular rate and rhythm without murmurs, gallops, or rubs. RESPIRATORY: Breath sounds equal bilaterally. No accessory muscle use. GASTROINTESTINAL: Abdomen soft, non-tender, nondistended. MUSCULOSKELETAL: No cyanosis, or edema. BACK: Nontender without obvious deformity. No CVA tenderness. Procedures None A/P Problem List: (1) Acute deep vein thrombosis (DVT) of both upper extremities ICD Code: I82.623 Status: Acute (2) Menometrorrhagia ICD Code: N92.1 Status: Acute (3) Iron deficiency anemia ICD Code: D50.9 Status: Acute Assessment and Plan 46-year-old female with a history of menometrorrhagia, previous upper ext DVT who presented to the ED due to worsening upper extremity pain and swelling. ED work up indicated bilateral upper extremity DVT. She was also found to have anemia with hemoglobin of 6.6 without patient has known menometrorrhagia. Unfortunately, patient has not been able to follow up with physicians including hematology or steam tunnel feeder due to lack of insurance. - Acute deep vein thrombosis of the upper extremities - Patient has a history of upper ext DVT for which she was on warfarin for 6 months. - Discussed with Dr. Chau (Hematology) who recommends heparin for now then oral anticoagulants for 3 months then chronic therapy with half the dose of oral anticoagulant. - Upon discharge, anticoagulation with probably Apixaban 5mg BID for 3 months then 2.5mg BID. - Underwent bilateral Uterine artery embolization by interventional radiology on 10/04/2016 - Wean off Dilaudid pump. Chronic iron deficiency anemia - Patient received 2 units of PRBCs. - Hematology provided 1800mg IV Iron on 10/01/2016. Dr. Chau will follow in the outpatient setting. Menometrorrhagia - Given the patient's persistent anemia and recurrent DVT, she needs anticoagulation. - SAND SCREENER performed D&C and endometrial ablation. Full code. Heparin drip. Rosa Velazquez DO Oct 05, 2016 8:36 am Discharge plan : Likely discharge after uterine artery embolization. Rosa Velazquez DO Oct 05, 2016 8:36 am
[2016-10-05] MEDS ORDERED: LORATADINE/PSEUDOEPHEDRINE 5 MG/120 MG TAB PO PRN (08:45)
[2016-10-05 09:15] LABS: APTT (PATIENT) 44.1 SEC (24.3-30.1)
[2016-10-05] MEDS: amLODIPine BESYLATE 5 MG TAB PO SCH (12:00)
[2016-10-05] MEDS: ONDANSETRON HCL 4 MG/2 ML VIAL IV PRN (12:06)
[2016-10-05] MEDS ORDERED: cloNIDine HCL 0.2 MG TAB PO ONE (13:15)
[2016-10-05] MEDS ORDERED: PROCHLORPERAZINE INJ 10 MG/2 ML VIAL IV PUSH PRN (13:15)
[2016-10-05] MEDS: HEPARIN-D5W INJ 250 ML IV SCH (16:59)
--- NOTE | 2016-10-05 19:56 | PD.ONC.PN ---
Subjective Subjective Remarks mild abd discomfort after embolization. no significant bleeding Objective Data Date Time Temp Pulse Resp B/P Pulse Ox O2 Delivery O2 Flow Rate FiO2 10/05/16 16:00 97.9 60 16 168/86 98 10/05/16 13:30 18 10/05/16 12:00 97.8 64 16 187/92 94 10/05/16 08:00 98.1 67 16 181/92 93 10/05/16 07:57 16 10/05/16 05:57 16 10/05/16 05:30 98.6 62 18 174/81 94 10/05/16 01:06 167/77 10/05/16 00:45 99.1 68 18 165/74 94 10/04/16 22:00 16 10/04/16 20:00 97.5 76 18 176/84 98 10/05/16 10/05/16 10/05/16 07:00 15:00 23:00 Intake Total 480 ml 728 ml Output Total 250 ml 100 ml Balance 230 ml 628 ml Result Diagram: 10/04/16 0519 10/02/16 1200 Laboratory Results Laboratory Tests Test 10/05/16 10/05/16 02:37 08:15 Activated Partial 44.3 SEC 44.1 SEC Thromboplast Time Administered Medications Medications (Trade) Dose Ordered Sig/Patricia Route PRN Reason Start Time Stop Time Status Last Admin Dose Admin Sodium Chloride (NS Flush) 2 ml BID IV FLUSH 09/28/16 21:00 10/05/16 08:01 Acetaminophen (Tylenol) 650 mg Q4H PRN PO Fever, headache 09/28/16 18:45 10/04/16 21:36 Senna/Docusate Sodium (Lauren-Colace) 1 tab BID PO 09/28/16 21:00 10/05/16 07:58 Magnesium Hydroxide (Milk Of Magnesia Liq) 30 ml Q12H PRN PO MILD - MODERATE CONSTIPATION 09/28/16 18:45 10/01/16 20:07 Bisacodyl (Dulcolax Supp) 10 mg DAILY PRN RECTAL SEVERE CONSITIPATION 09/28/16 18:45 10/05/16 14:51 Lactulose (Lactulose Liq) 30 ml DAILY PRN PO SEVERE CONSITIPATION 09/28/16 18:45 10/05/16 08:00 Sodium Chloride (NS Flush) DAILY IVF 09/30/16 09:00 10/05/16 08:01 Oxycodone/ Acetaminophen (Percocet 5-325 Mg) 1 tab Q4H PRN PO PAIN 1-5 09/29/16 20:15 10/01/16 16:13 Zolpidem Tartrate (Ambien) 5 mg HS PRN PO INSOMNIA 09/29/16 20:15 10/02/16 21:50 Oxycodone/ Acetaminophen 1 tab 1 tab Q4H PRN PO PAIN 6-10 10/01/16 14:30 10/04/16 05:29 Heparin Sodium/ Dextrose (Heparin-D5W Inj) 250 ml @ 0 mls/hr TITRATE IV 10/02/16 12:00 10/05/16 16:59 Ondansetron HCl (Zofran Inj) 4 mg Q6H PRN IV NAUSEA OR VOMITING 10/04/16 14:45 10/05/16 12:06 Hydromorphone HCl (Dilaudid ACUTE CARE NURSE Inj) 6 mg UNSCH IV 10/04/16 14:45 10/05/16 07:57 ACUTE CARE NURSE Dosage Infused (Pha) 1 Q8HR OTHER 10/04/16 22:00 10/05/16 13:30 Clonidine (Catapres) 0.1 mg Q6H PRN PO SBP>160, DBP>90 10/04/16 16:45 10/05/16 07:58 Hydralazine HCl (Apresoline) 25 mg Q8HR PO 10/04/16 22:00 10/05/16 14:50 Amlodipine Besylate (Norvasc) 5 mg DAILY PO 10/05/16 09:00 10/05/16 12:00 Prochlorperazine Edisylate (Compazine Inj) 5 mg Q6H PRN IV PUSH NAUSEA OR VOMITING 10/05/16 13:15 10/05/16 18:44 Objective Remarks GENERAL: Well-nourished, well-developed patient. SKIN: Warm and dry. HEAD: Normocephalic. EYES: No scleral icterus. No injection or drainage. NECK: Supple, trachea midline. No JVD or lymphadenopathy. LYMPHATIC: No adenopathy. CARDIOVASCULAR: Regular rate and rhythm without murmurs. RESPIRATORY: Breath sounds equal bilaterally. No accessory muscle use. GASTROINTESTINAL: Abdomen soft, non-tender, nondistended. EXTREMITIES: less tenderness of cords in medial aspect of arms. MUSCULOSKELETAL: Adequate muscle tone. NEUROLOGICAL: No obvious focal deficit. Awake, alert, and oriented x3. PSYCHIATRIC: Appropriate mood and affect; insight and judgment normal. Assessment/Plan Assessment 46y/o female with iron deficiency anemia secondary to vaginal bleeding as well as bilateral upper extremity venous thrombosis. s/p D&C, 10/01/16 Plan 1: doing well. if no bleeding tomorrow will stop heparin and begin apixiban. Hopefully home in next few days. 2: if there is no further bleeding we should see rising hemoglobin in next few weeks given iron transfusion. 3: when discharged make apt to see me in 3-4 weeks with cbc plat and md visit. please make sure that case management provides for continued access to apixiban Geovanny Chau MD Oct 05, 2016 19:56
[2016-10-06 00:30] VITALS: BP 184/86; PULSE 62; RESP 18; TEMP 98.6; O2SAT 98
[2016-10-06 02:15] VITALS: BP 165/88; PULSE 58
[2016-10-06 02:16] VITALS: BP 174/84; PULSE 58
[2016-10-06] MEDS: cloNIDine HCL 0.1 MG TAB PO PRN ×2 (02:17→10:25)
[2016-10-06 04:45] VITALS: BP 140/71; PULSE 60; RESP 16; TEMP 97.7; O2SAT 97
[2016-10-06] MEDS: HYDROmorphone HCL PCA 6 MG/30 ML IV SCH (04:52)
[2016-10-06] MEDS: PCA - TOTAL MG DILAUDID DELIVERED PER SHIFT OTHER SCH (04:55)
[2016-10-06] MEDS: hydrALAZINE HCL 25 MG TAB PO SCH ×2 (05:47→14:46)
[2016-10-06 06:47] LABS: APTT (PATIENT) 44.8 SEC (24.3-30.1)
[2016-10-06 08:00] VITALS: BP 174/84; PULSE 54; RESP 16; TEMP 96.5; O2SAT 100
[2016-10-06] MEDS ORDERED: HYDROmorphone HCL PF 1 MG/ML VIAL IV PUSH PRN (08:30)
--- NOTE | 2016-10-06 08:36 | HHI.PR ---
Subjective Remarks Follow up for bilateral upper ext DVT, menometrorrhagia. Patient is doing well. No acute concerns.Denies any fever, chills. No bleeding. Objective Vitals Vital Signs Date Time Temp Pulse Resp B/P Pulse Ox O2 Delivery O2 Flow Rate FiO2 10/06/16 08:00 96.5 54 16 174/84 100 10/06/16 04:55 16 10/06/16 04:52 16 10/06/16 04:45 97.7 60 16 140/71 97 10/06/16 02:16 58 174/84 10/06/16 02:15 58 165/88 10/06/16 00:30 98.6 62 18 184/86 98 10/05/16 22:10 60 181/90 10/05/16 22:00 16 10/05/16 20:00 98.2 59 18 177/81 94 10/05/16 16:00 97.9 60 16 168/86 98 10/05/16 13:30 18 10/05/16 12:00 97.8 64 16 187/92 94 I/O 10/05/16 10/05/16 10/05/16 10/06/16 10/06/16 10/06/16 07:00 15:00 23:00 07:00 15:00 23:00 Intake Total 480 ml 728 ml 300 ml 240 ml Output Total 250 ml 100 ml 1250 ml 400 ml Balance 230 ml 628 ml -950 ml -160 ml Intake Oral 480 ml 360 ml 240 ml IV Total 368 ml 300 ml Output Urine Total 250 ml 100 ml 1250 ml 400 ml # Voids 2 # Bowel Movements 0 Result Diagram: 10/04/16 0519 10/02/16 1200 Imaging Last Impressions Venogram 10/04/16 0000 Signed Impressions: Service Date/Time: Tuesday, October 04, 2016 09:54 - CONCLUSION: 1. Left upper extremity venography confirms acute nearly occlusive thrombus involving the left brachial vein extending peripherally to antecubital and proximal forearm veins. 2. More centrally the outflow veins are patent although there is non-flow limiting mild to moderate stenosis of the central subclavian vein. Ez Iglesias MD Embolization, Transcatheter 10/04/16 0000 Signed Impressions: Service Date/Time: Tuesday, October 04, 2016 09:54 - CONCLUSION: Uncomplicated uterine artery embolization as above. Ez Iglesias MD Upper Extremity CTA 09/30/16 Signed Impressions: Service Date/Time: September 15:38 - CONCLUSION: 1. Nondiagnostic CTV examination in this patient with history of suspected extensive bilateral upper extremity DVTs, as above. The central jugular veins to the junction of the brachiocephalic veins are patent. The subclavian and more peripheral veins are not adequately opacified for evaluation. 2. Normal CT angiography of the upper extremities with widely patent proximal arch vessels. Ez Iglesias MD Pelvis Ultrasound 09/29/16 Signed Impressions: Service Date/Time: Thursday, September 29, 2016 20:18 - CONCLUSION: 1. 6.9 cm uterine fibroid, increased in size from comparison exam in February 2015. 2. Small left ovarian cyst. Right ovary not visualized. Colin Davis MD Upper Extremity Ultrasound 09/28/16 Signed Impressions: Service Date/Time: Wednesday, September 28, 2016 16:36 - CONCLUSION: Thrombus in the brachial and basilic veins bilaterally. Eyal Fox MD Objective Remarks GENERAL: Alert, oriented 3, NAD. SKIN: Warm and dry. HEAD: Normocephalic. EYES: No scleral icterus. No injection or drainage. NECK: Supple, trachea midline. No JVD or lymphadenopathy. CARDIOVASCULAR: Regular rate and rhythm without murmurs, gallops, or rubs. RESPIRATORY: Breath sounds equal bilaterally. No accessory muscle use. GASTROINTESTINAL: Abdomen soft, non-tender, nondistended. MUSCULOSKELETAL: No cyanosis, or edema. BACK: Nontender without obvious deformity. No CVA tenderness. Procedures None A/P Problem List: (1) Acute deep vein thrombosis (DVT) of both upper extremities ICD Code: I82.623 Status: Acute (2) Menometrorrhagia ICD Code: N92.1 Status: Acute (3) Iron deficiency anemia ICD Code: D50.9 Status: Acute Assessment and Plan 46-year-old female with a history of menometrorrhagia, previous upper ext DVT who presented to the ED due to worsening upper extremity pain and swelling. ED work up indicated bilateral upper extremity DVT. She was also found to have anemia with hemoglobin of 6.6 without patient has known menometrorrhagia. Unfortunately, patient has not been able to follow up with physicians including hematology or conference interpreter due to lack of insurance. - Acute deep vein thrombosis of the upper extremities - Patient has a history of upper ext DVT for which she was on warfarin for 6 months. - Discussed with Dr. Chau (Hematology) who recommends heparin for now then oral anticoagulants for 3 months then chronic therapy with half the dose of oral anticoagulant. - Upon discharge, anticoagulation with probably Apixaban 5mg BID for 3 months then 2.5mg BID. - Underwent bilateral Uterine artery embolization by interventional radiology on 10/04/2016 - Wean off Dilaudid pump. Chronic iron deficiency anemia - Patient received 2 units of PRBCs. - Hematology provided 1800mg IV Iron on 10/01/2016. Dr. Chau will follow in the outpatient setting. Menometrorrhagia - Given the patient's persistent anemia and recurrent DVT, she needs anticoagulation. - SENIOR TELECOMMUNICATIONS SPECIALIST performed D&C and endometrial ablation. Full code. Heparin drti. Rosa Velazquez DO Oct 06, 2016 08:36
[2016-10-06] MEDS: DOCUSATE SODIUM 50 MG/SENNA 8.6 MG TAB PO SCH (09:00)
[2016-10-06] MEDS ORDERED: APIXABAN 5 MG TABLET PO SCH (09:00)
[2016-10-06] MEDS: SODIUM CHLORIDE 0.9% FLUSH 10 ML FLUSH IVF SCH (10:25)
[2016-10-06] MEDS: oxyCODONE/ACETAMINOPHEN 10 MG/325 MG TAB PO PRN ×2 (10:25→14:46)
[2016-10-06] MEDS: amLODIPine BESYLATE 5 MG TAB PO SCH (10:25)
[2016-10-06] MEDS: SODIUM CHLORIDE 0.9% FLUSH 10 ML FLUSH IV FLUSH SCH (10:25)
[2016-10-06 12:00] VITALS: BP 165/81; PULSE 55; RESP 16; TEMP 96.7; O2SAT 99
[2016-10-06] MEDS ORDERED: AMLO10TA2 PO (12:03)
[2016-10-06] MEDS ORDERED: OXYC1TAB36 PO ×2 (12:03→13:25)
[2016-10-06] MEDS ORDERED: HYDR-3799 PO (12:03)
[2016-10-06] MEDS ORDERED: APIX5TAB PO (12:03)
--- NOTE | 2016-10-06 12:59 | PD.ONC.PN ---
Subjective Subjective Remarks mild lower abd pain from embolization. no bleeding. Objective Data Date Time Temp Pulse Resp B/P Pulse Ox O2 Delivery O2 Flow Rate FiO2 10/06/16 12:00 96.7 55 16 165/81 99 10/06/16 08:00 96.5 54 16 174/84 100 10/06/16 04:55 16 10/06/16 04:52 16 10/06/16 04:45 97.7 60 16 140/71 97 10/06/16 02:16 58 174/84 10/06/16 02:15 58 165/88 10/06/16 00:30 98.6 62 18 184/86 98 10/05/16 22:10 60 181/90 10/05/16 22:00 16 10/05/16 20:00 98.2 59 18 177/81 94 10/05/16 16:00 97.9 60 16 168/86 98 10/05/16 13:30 18 10/06/16 10/06/16 10/06/16 07:00 15:00 23:00 Intake Total 240 ml 240 ml Output Total 400 ml Balance -160 ml 240 ml Result Diagram: 10/04/16 0519 10/02/16 1200 Laboratory Results Laboratory Tests Test 10/06/16 05:50 Activated Partial 44.8 SEC Thromboplast Time Administered Medications Medications (Trade) Dose Ordered Sig/Patricia Route PRN Reason Start Time Stop Time Status Last Admin Dose Admin Sodium Chloride (NS Flush) 2 ml BID IV FLUSH 09/28/16 21:00 10/06/16 10:25 Acetaminophen (Tylenol) 650 mg Q4H PRN PO Fever, headache, pain 1-4 09/28/16 18:45 10/04/16 21:36 Senna/Docusate Sodium (Lauren-Colace) 1 tab BID PO 09/28/16 21:00 10/05/16 22:13 Magnesium Hydroxide (Milk Of Magnesia Liq) 30 ml Q12H PRN PO MILD - MODERATE CONSTIPATION 09/28/16 18:45 10/01/16 20:07 Bisacodyl (Dulcolax Supp) 10 mg DAILY PRN RECTAL SEVERE CONSITIPATION 09/28/16 18:45 10/05/16 14:51 Lactulose (Lactulose Liq) 30 ml DAILY PRN PO SEVERE CONSITIPATION 09/28/16 18:45 10/05/16 08:00 Sodium Chloride (NS Flush) DAILY IVF 09/30/16 09:00 10/06/16 10:25 Zolpidem Tartrate (Ambien) 5 mg HS PRN PO INSOMNIA 09/29/16 20:15 10/02/16 21:50 Oxycodone/ Acetaminophen (Percocet 10-325 Mg) 1 tab Q4H PRN PO PAIN SCALE 5 TO 10 10/01/16 14:30 10/06/16 10:25 Ondansetron HCl (Zofran Inj) 4 mg Q6H PRN IV NAUSEA OR VOMITING 10/04/16 14:45 10/05/16 12:06 Clonidine (Catapres) 0.1 mg Q6H PRN PO SBP>160, DBP>90 10/04/16 16:45 10/06/16 10:25 Hydralazine HCl (Apresoline) 25 mg Q8HR PO 10/04/16 22:00 10/06/16 05:47 Amlodipine Besylate (Norvasc) 5 mg DAILY PO 10/05/16 09:00 10/06/16 10:25 Prochlorperazine Edisylate (Compazine Inj) 5 mg Q6H PRN IV PUSH NAUSEA OR VOMITING 10/05/16 13:15 10/05/16 18:44 Apixaban (Eliquis) 5 mg BID PO 10/06/16 09:00 10/06/16 10:24 Objective Remarks GENERAL: Well-nourished, well-developed patient. SKIN: Warm and dry. HEAD: Normocephalic. EYES: No scleral icterus. No injection or drainage. NECK: Supple, trachea midline. No JVD or lymphadenopathy. LYMPHATIC: No adenopathy. CARDIOVASCULAR: Regular rate and rhythm without murmurs. RESPIRATORY: Breath sounds equal bilaterally. No accessory muscle use. GASTROINTESTINAL: Abdomen soft, non-tender, nondistended. mild discomfort over suprapubic area. EXTREMITIES: No cyanosis, or edema. cords medial arm continue to soften and less tender. MUSCULOSKELETAL: Adequate muscle tone. NEUROLOGICAL: No obvious focal deficit. Awake, alert, and oriented x3. PSYCHIATRIC: Appropriate mood and affect; insight and judgment normal. Assessment/Plan Assessment 1: no further vaginal bleeding. at this point can go home. apixaban 5 mg po bid started and heparin discontinued. Will make arrangements to see in several weeks with cbc plat and md visit. She understands that if she develops significant vaginal bleeding she is to hold the apixaban and seek evaluation. She does not need to take PO iron on discharge as she was given adequate IV iron. She appears reliable and understands issues well. Plan Geovanny Chau MD Oct 06, 2016 12:59
--- NOTE | 2016-10-06 13:29 | HHI.DS ---
Discharge Summary Admission Date Sep 28, 2016 at 6:51 pm Discharge Date: Oct 06, 2016 Admitting Diagnosis bilateral upper extremity DVT, anemia (1) Acute deep vein thrombosis (DVT) of both upper extremities ICD Code: I82.623 Diagnosis: Principal (2) Menometrorrhagia ICD Code: N92.1 Diagnosis: Principal (3) Iron deficiency anemia ICD Code: D50.9 Procedures 09/30/2016 PROCEDURE Examination under anesthesia, dilation and curettage of the uterus, hysteroscopic exam and an attempted NovaSure endometrial ablation. 10/04/2016 Bilateral UFE utilizing PVA and gelfoam. LUE venogram -> thrombosed brachial and more peripherally. Centrally the axillary, subclavian and svc are patent. Brief History - From Admission Ms. Lyle is a pleasant 46 year old female with history of menometrorrhagia, iron deficiency anemia, upper extremity thrombosis who presents to the ED on 09/28/2016 due to bilateral arm pain and swelling. On Tuesday or Tuesday (09/25 or 09/26/2016), patient noticed right upper ext superficial thrombophlebitis. She was advised to apply warm compression and use NSAIDs. However, she started having worsening pain on both upper extremities above elbow. She reports no chest pain, shortness of breath, fever, or chills. She was previously treated with warfarin for 6 months for left basilic/cephalic upper ext thrombosis. She reports no history of PE or lower ext DVT. Denies recent surgery, long distance travel or any history of cancer. ED workup on 2016 indicates bilateral upper ext DVT in the basilic and brachial veins. Additionally, patient's hemoglobin was 6.6. However, she reports no fatigue, chest pain, shortness of breath. She normally has low hemoglobin. She is taking Iron supplements twice a day with vitamin C. However, she does not follow up with any physician due to lack of insurance. Patient denies any hematemesis or hematochezia. Her stool is dark due to iron supplement. However, stool is formed and not like tar. She has a long history of menometrorrhagia. She has not been evaluated by any Radon Inspector with regards to her menometrorrhagia. CBC/BMP: 10/04/16 0519 10/02/16 1200 Significant Findings Laboratory Tests Test 10/04/16 10/05/16 10/05/16 10/06/16 05:19 02:37 08:15 05:50 Red Blood Count 5.44 MIL/MM3 (4.00-5.30) Hemoglobin 8.9 GM/DL (11.6-15.3) Hematocrit 32.0 % (35.0-46.0) Mean Corpuscular Volume 58.9 FL (80.0-100.0) Mean Corpuscular Hemoglobin 16.4 PG (27.0-34.0) Mean Corpuscular Hemoglobin 27.9 % Concent (32.0-36.0) Red Cell Distribution Width 41.2 % (11.6-17.2) Platelet Count 638 TH/MM3 (150-450) Activated Partial 44.3 SEC 44.1 SEC 44.8 SEC Thromboplast Time (24.3-30.1) (24.3-30.1) (24.3-30.1) Imaging Last Impressions Venogram 10/04/16 0000 Signed Impressions: Service Date/Time: Tuesday, October 04, 2016 09:54 - CONCLUSION: 1. Left upper extremity venography confirms acute nearly occlusive thrombus involving the left brachial vein extending peripherally to antecubital and proximal forearm veins. 2. More centrally the outflow veins are patent although there is non-flow limiting mild to moderate stenosis of the central subclavian vein. Ez Iglesias MD Embolization, Transcatheter 10/04/16 0000 Signed Impressions: Service Date/Time: Tuesday, October 04, 2016 09:54 - CONCLUSION: Uncomplicated uterine artery embolization as above. Ez Iglesias MD Upper Extremity CTA 09/30/16 0000 Signed Impressions: Service Date/Time: September 15:38 - CONCLUSION: 1. Nondiagnostic CTV examination in this patient with history of suspected extensive bilateral upper extremity DVTs, as above. The central jugular veins to the junction of the brachiocephalic veins are patent. The subclavian and more peripheral veins are not adequately opacified for evaluation. 2. Normal CT angiography of the upper extremities with widely patent proximal arch vessels. Ez Iglesias MD Pelvis Ultrasound 09/29/16 0000 Signed Impressions: Service Date/Time: Thursday, September 29, 2016 20:18 - CONCLUSION: 1. 6.9 cm uterine fibroid, increased in size from comparison exam in February 2015. 2. Small left ovarian cyst. Right ovary not visualized. Colin Davis MD Upper Extremity Ultrasound 09/28/16 0000 Signed Impressions: Service Date/Time: Wednesday, September 28, 2016 16:36 - CONCLUSION: Thrombus in the brachial and basilic veins bilaterally. Eyal Fox MD PE at Discharge GENERAL: Alert, oriented 3, NAD. SKIN: Warm and dry. HEAD: Normocephalic. EYES: No scleral icterus. No injection or drainage. NECK: Supple, trachea midline. No JVD or lymphadenopathy. CARDIOVASCULAR: Regular rate and rhythm without murmurs, gallops, or rubs. RESPIRATORY: Breath sounds equal bilaterally. No accessory muscle use. GASTROINTESTINAL: Abdomen soft, non-tender, nondistended. MUSCULOSKELETAL: No cyanosis, or edema. BACK: Nontender without obvious deformity. No CVA tenderness. Pt update on day of discharge Follow up for bilateral upper ext DVT, menometrorrhagia. Patient is doing well. No acute concerns.Denies any fever, chills. No bleeding. Hospital Course 46-year-old female with a history of menometrorrhagia, previous upper ext DVT who presented to the ED due to worsening upper extremity pain and swelling. ED work up indicated bilateral upper extremity DVT. She was also found to have anemia with hemoglobin of 6.6 without patient has known menometrorrhagia. Unfortunately, patient has not been able to follow up with physicians including hematology or airplane engineer due to lack of insurance. - Acute deep vein thrombosis of the upper extremities - Patient has a history of upper ext DVT for which she was on warfarin for 6 months. - Discussed with Dr. Chau (Hematology) who recommends heparin for now then oral anticoagulants for 3 months then chronic therapy with half the dose of oral anticoagulant. - Upon discharge, anticoagulation with probably Apixaban 5mg BID for 3 months then 2.5mg BID. - Underwent bilateral Uterine artery embolization by interventional radiology on 10/04/2016 - Wean off Dilaudid pump. Chronic iron deficiency anemia - Patient received 2 units of PRBCs. - Hematology provided 1800mg IV Iron on 10/01/2016. Dr. Chau will follow in the outpatient setting. Menometrorrhagia - Given the patient's persistent anemia and recurrent DVT, she needs anticoagulation. - SURVEYING TECHNICIAN performed D&C and endometrial ablation. Full code. Heparin drip. Pt Condition on Discharge: Good Discharge Disposition: Discharge Home Discharge Time: > 30 minutes Discharge Instructions DIET: Follow Instructions for: Heart Healthy Diet Activities you can perform: Regular-No Restrictions Follow up Referrals: Oncology - 2 Weeks with Geovanny Chau MD New Medications: Amlodipine (Amlodipine) 10 Mg Tab 10 MG PO DAILY Blood Pressure Management #30 Ref 0 TAB Apixaban (Eliquis) 5 Mg Tab 5 MG PO BID Blood Clot Prevention #60 Ref 2 TAB Hydralazine HCl (Hydralazine HCl) 25 Mg Tablet 25 MG PO Q8HR Blood Pressure Management #90 BOTTLE Oxycodone-Acetaminophen (Oxycodone-Acetaminophen) 10-325 mg Tab 1 TAB PO Q6HR PRN PAIN SCALE 5 TO 10 #20 TAB Continued Medications: Ferrous Sulfate DR (Ferrous Sulfate DR) 324 Mg Tabdr 325 MG PO DAILY Nutritional Supplement #30 Ref 0 TAB Discontinued Medications: Aspirin (Aspirin) 325 Mg Tab 325 MG PO DAILY #30 Ref 0 TAB Rosa Velazquez DO Oct 06, 2016 13:29
== END 2016-10-06 16:34 | disposition home or self-care (01) | DRG 744 ==
LOC: PHED 14:58 → PHEDA 18:51 → PH3A 21:15 → NEPGCP 09-29 09:49 → HOCA 09-29 13:37
PROVIDERS: ADMIT Hospitalist; ATTEND Hospitalist
PROC: 05HM33Z Insertion of Infusion Device into Right Internal Jugular Vein, Percutaneous Approach (ICD-10-PCS; 2016-09-29)
PROC: 0UDB8ZZ Extraction of Endometrium, Via Natural or Artificial Opening Endoscopic (ICD-10-PCS; principal; 2016-09-30 18:07)
PROC: 04LF3DU Occlusion of Left Uterine Artery with Intraluminal Device, Percutaneous Approach (ICD-10-PCS; 2016-10-04)
PROC: 04LE3DT Occlusion of Right Uterine Artery with Intraluminal Device, Percutaneous Approach (ICD-10-PCS; 2016-10-04)
PROC: B41C1ZZ Fluoroscopy of Pelvic Arteries using Low Osmolar Contrast (ICD-10-PCS; 2016-10-04)
DX: N92.1 Excessive and frequent menstruation with irregular cycle (principal); I82.623 Acute embolism and thrombosis of deep veins of upper extremity, bilateral; D50.0 Iron deficiency anemia secondary to blood loss (chronic); F17.210 Nicotine dependence, cigarettes, uncomplicated; K59.00 Constipation, unspecified; D25.9 Leiomyoma of uterus, unspecified; R03.0 Elevated blood-pressure reading, without diagnosis of hypertension; Z86.718 Personal history of other venous thrombosis and embolism; Z79.82 Long term (current) use of aspirin
CPT/HCPCS: 36005; 36247; 36430; 36556; 37243; 73206; 75820; 76830; 76856; 76937; 77001; 80048; 81240; 81241; 82728; 83010; 83540; 83550; 83615; 84443; 85007; 85027; 85060; 85598; 85610; 85613; 85730; 86146; 86147; 86148; 86850; 86900; 86901; 86920; 88305; 93005; 93970; 99152; 99153; C1769; C1887; C1894; J0131; J0360; J0690; J0780; J1100; J1170; J1644; J1750; J1756; J1885; J2250; J2270; J2370; J2405; J3010; J7040; J7120; P9016; Q9967

== ENCOUNTER 2017-03-14 13:13 | Emergency (ER) | payer SELFPAY ==
[~2017-03-14] VITALS: Ht 165.1 cm; Wt 87.0 kg
[~2017-03-14 13:13] MED LIST changes: +AMLO10TA2 PO; +APIX5TAB PO; -ASPI325T PO; +HYDR-3799 PO; +OXYC1TAB36 PO
[2017-03-14 13:24] VITALS: BP 145/91; PULSE 60; RESP 18; TEMP 97.8; O2SAT 97
[2017-03-14] MEDS ORDERED: ONDANSETRON HCL 4 MG/2 ML VIAL IV PUSH ONE (14:15)
[2017-03-14] MEDS ORDERED: HYDROmorphone HCL PF 2 MG/ML VIAL SQ ONE (14:15)
--- NOTE | 2017-03-14 14:15 | PD ---
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 She has a history of menorrhagia. In September she had embolization of the uterine artery. Her periods of been a bit diabetes specialist since then. She's been bleeding for 2 weeks. She has not been passing clots. She is having midline lower abdominal cramps. This has been an ongoing problem. She has received iron in the past. She has been transfused in the past PFSH Past Medical History Hx Anticoagulant Therapy: No AAA: No ADD: No ADHD: No Anemia: Yes Asthma: Yes (allergy related / allergic to cats ) Blood Disorders: No Anxiety: No Depression: No Heart Rhythm Problems: No Cancer: No Cardiovascular Problems: Yes High Cholesterol: No Chemotherapy: No Chest Pain: No COPD: No Cerebrovascular Accident: No Diminished Hearing: No Deep Vein Thrombosis: Yes (hx of (Left arm)) Endocrine: No Gastrointestinal Disorders: Yes Genitourinary: No Headaches: Yes Hypertension: Yes Immune Disorder: No Implanted Vascular Access Dvce: No Musculoskeletal: Yes (deteriorating spine) Neurologic: No Psychiatric: No Reproductive: Yes (menorrhagia) Respiratory: No Immunizations Current: No Migraines: Yes Radiation Therapy: No Seizures: No Sleep Apnea: No ?: Not LMP: 03/14/17 Menopausal: Yes : 8 Para: 4 : 4 Ectopic : No Ovarian Cysts: Yes (fibroids on uterus) Dilation and Curettage (D&C): No Tubal Ligation: Yes (2000) Past Surgical History Abdominal Surgery: No AICD: No Cardiac Surgery: No Section: No Ear Surgery: No Endocrine Surgery: No Eye Surgery: No Genitourinary Surgery: No Gynecologic Surgery: Yes Hysterectomy: No Neurologic Surgery: No Oral Surgery: Yes Thoracic Surgery: No Tonsillectomy: Yes (1977) Other Surgery: Yes (pooja angina) Social History Alcohol Use: Yes (WEEKLY) Tobacco Use: Yes ( 1/2 pack a day for 32 years) Substance Use: No Allergies-Medications (Allergen,Severity, Reaction): Coded Allergies: cat dander (Unverified Allergy, Severe, Itching, 11/09/16) codeine (Unverified Allergy, Severe, Twitching, 11/09/16) hydrocodone (Unverified Allergy, Intermediate, itching, 11/09/16) Reported Meds & Prescriptions Reported Meds & Active Scripts Active Oxycodone-Acetaminophen 10-325 mg Tab 1 Tab PO Q6HR PRN Hydralazine HCl 25 Mg Tablet 25 Mg PO Q8HR Amlodipine (Amlodipine Besylate) 10 Mg Tab 10 Mg PO DAILY Eliquis (Apixaban) 5 Mg Tab 5 Mg PO BID Reported Ferrous Sulfate DR (Ferrous Sulfate) 324 Mg Tabdr 325 Mg PO DAILY Review of Systems General / Constitutional: No: Fever, Chills Eyes: No: Diploplia, Blurred Vision HENT: No: Headaches, Vertigo Cardiovascular: No: Chest Pain or Discomfort Respiratory: No: Cough Gastrointestinal: No: Nausea, Vomiting Genitourinary: Positive: Dysmenorrhea, Metorrhagia, Vaginal Bleeding Musculoskeletal: No: Myalgias, Arthralgias Skin: No Rash, No Itching Physical Exam Narrative GENERAL: Well-developed female SKIN: Focused skin assessment warm/dry. HEAD: Atraumatic. Normocephalic. EYES: Pupils equal and round. No scleral icterus. No injection or drainage. ENT: No nasal bleeding or discharge. Mucous membranes pink and moist. NECK: Trachea midline. No JVD. GASTROINTESTINAL: Abdomen soft, non-tender, nondistended. Hepatic and splenic margins not palpable. BONE DENSITY TECHNICIAN: There is some bleeding from the os. It does not appear to be having at this time. Uterus minimally enlarged no adnexal masses MUSCULOSKELETAL: No obvious deformities. No clubbing. No cyanosis. No edema. NEUROLOGICAL: Awake and alert. No obvious cranial nerve deficits. Motor grossly within normal limits. Normal speech. PSYCHIATRIC: Appropriate mood and affect; insight and judgment normal. Data Data Last Documented VS Vital Signs Date Time Temp Pulse Resp B/P (MAP) Pulse Ox O2 Delivery O2 Flow Rate FiO2 03/14/17 13:24 97.8 60 18 145/91 (109) 97 Orders Orders Complete Blood Count With Diff (03/14/17 14:07) Basic Metabolic Panel (Bmp) (03/14/17 14:07) Ondansetron Inj (Zofran Inj) (03/14/17 14:15) Hydromorphone Pf Inj (Dilaudid Pf Inj) (03/14/17 14:15) Hydromorphone Pf Inj (Dilaudid Pf Inj) (03/14/17 15:00) Labs Laboratory Tests Test 03/14/17 14:45 White Blood Count 6.7 TH/MM3 Red Blood Count 5.28 MIL/MM3 Hemoglobin 12.3 GM/DL Hematocrit 39.0 % Mean Corpuscular Volume 74.0 FL Mean Corpuscular Hemoglobin 23.4 PG Mean Corpuscular Hemoglobin Concent 31.6 % Red Cell Distribution Width 13.9 % Platelet Count 287 TH/MM3 Mean Platelet Volume 8.5 FL Neutrophils (%) (Auto) 63.3 % Lymphocytes (%) (Auto) 28.2 % Monocytes (%) (Auto) 5.3 % Eosinophils (%) (Auto) 1.3 % Basophils (%) (Auto) 1.9 % Neutrophils # (Auto) 4.2 TH/MM3 Lymphocytes # (Auto) 1.9 TH/MM3 Monocytes # (Auto) 0.4 TH/MM3 Eosinophils # (Auto) 0.1 TH/MM3 Basophils # (Auto) 0.1 TH/MM3 CBC Comment AUTO DIFF Blood Urea Nitrogen 15 MG/DL Creatinine 0.90 MG/DL Random Glucose 85 MG/DL Calcium Level 8.3 MG/DL Sodium Level 137 MEQ/L Potassium Level 4.0 MEQ/L Chloride Level 105 MEQ/L Carbon Dioxide Level 25.4 MEQ/L Anion Gap 7 MEQ/L Estimat Glomerular Filtration Rate 81 ML/MIN MDM Medical Decision Making Medical Screen Exam Complete: Yes Emergency Medical Condition: Yes Medical Record Reviewed: Yes Differential Diagnosis Differential includes menorrhagia, uterine fibroids, anemia Narrative Course Hemoglobin today is 12.3 and is better than it has been for some time. Patient is requesting pain medication help with cramps. She has been using anti- inflammatory medications without relief. I will prescribe some tramadol Diagnosis Primary Impression: Fibroids Scripts Tramadol (Tramadol) 50 Mg Tab 50 MG PO Q4H Y for PAIN, #30 TAB 0 Refills Prov: Krystian Bender MD 03/14/17 Disposition: 01 DISCHARGE HOME Condition: Stable Krystian Bender MD Mar 14, 2017 14:15
[2017-03-14] MEDS ORDERED: HYDROmorphone HCL PF 2 MG/ML VIAL IV PUSH ONE (15:00)
[2017-03-14 15:22] LABS: AUTOMATED NEUTROPHIL # 4.2 TH/MM3 (1.8-7.7); BASOPHIL # 0.1 TH/MM3 (0-0.2); BASOPHIL % 1.9 % (0.0-2.0); EOSINOPHIL # 0.1 TH/MM3 (0-0.4); EOSINOPHIL % 1.3 % (0.0-4.0); HEMOGLOBIN 12.3 GM/DL (11.6-15.3); LYMPH % 28.2 % (9.0-44.0); LYMPHOCYTE # 1.9 TH/MM3 (1.0-4.8); MEAN CORPUSCULAR HEMOGLOBIN 23.4 PG (27.0-34.0); MEAN CORPUSCULAR HGB CONC 31.6 % (32.0-36.0); MEAN PLATELET VOLUME 8.5 FL (7.0-11.0); MONO % 5.3 % (0.0-8.0); MONOCYTE # 0.4 TH/MM3 (0-0.9); NEUT % 63.3 % (16.0-70.0); PLATELET COUNT 287 TH/MM3 (150-450); RED BLOOD COUNT 5.28 MIL/MM3 (4.00-5.30); RED CELL DISTRIBUTION WIDTH 13.9 % (11.6-17.2); WHITE BLOOD COUNT 6.7 TH/MM3 (4.0-11.0)
[2017-03-14 15:43] LABS: CALCIUM 8.3 MG/DL (8.5-10.1)
[2017-03-14 15:44] LABS: BICARBONATE 25.4 MEQ/L (21.0-32.0)
[2017-03-14 15:47] LABS: CREATININE 0.9 MG/DL (0.50-1.00)
[2017-03-14] MEDS ORDERED: TRAM50TA PO (15:56)
== END 2017-03-14 16:59 | disposition home or self-care (01) ==
LOC: PHED 13:13
DX: D25.9 Leiomyoma of uterus, unspecified (principal); D64.9 Anemia, unspecified; J45.909 Unspecified asthma, uncomplicated; I10 Essential (primary) hypertension; Z72.0 Tobacco use
CPT/HCPCS: 80048; 85025; 96374; 96375; 99284; J1170; J2405

== ENCOUNTER 2017-03-24 11:50 | Emergency (ER) | payer SELFPAY ==
[~2017-03-24 11:50] MED LIST changes: +TRAM50TA PO
[2017-03-24 11:53] VITALS: BP 165/95; PULSE 78; RESP 14; TEMP 98.2; O2SAT 100
[2017-03-24] MEDS ORDERED: SODIUM CHLOR 0.9% 1000 ML INJ 1,000 ML IV ONE (12:21)
[2017-03-24] MEDS ORDERED: SODIUM CHLORIDE 0.9% FLUSH 10 ML FLUSH IVF PRN (12:30)
[2017-03-24] MEDS ORDERED: ACETAMINOPHEN 325 MG TAB PO ONE (12:30)
[2017-03-24] MEDS ORDERED: diphenhydrAMINE HCL 50 MG/ML VIAL IVP ONE (12:30)
[2017-03-24] MEDS ORDERED: PROCHLORPERAZINE INJ 10 MG/2 ML VIAL IVP ONE (12:30)
[2017-03-24 12:34] VITALS: O2SAT 100
[2017-03-24] MEDS ORDERED: PROM25TA10 PO (14:22)
--- NOTE | 2017-03-24 14:23 | PD ---
HPI Chief Complaint: Headache Time Seen by Provider: 12:13 Travel History International Travel<30 days: No Contact w/Intl Traveler<30days: No Traveled to known affect area: No History of Present Illness HPI The patient is 46 years old and arrives to the ER complaining of headache with the location being bifrontal and to the region of the left temporal scalp. She notes onset about 3 days prior as well as a history of headaches however not typically this long. There is no stiffness in the neck or restricted range of motion. She denies fever. There is no history of vomiting however the patient does report photophobia. Onset gradual. Although the duration is longer than normal. Quality is not atypical for the patient. PFSH Past Medical History Hx Anticoagulant Therapy: No AAA: No ADD: No ADHD: No Anemia: Yes Asthma: Yes (allergy related / allergic to cats ) Blood Disorders: No Anxiety: No Depression: No Heart Rhythm Problems: No Cancer: No Cardiovascular Problems: Yes High Cholesterol: No Chemotherapy: No Chest Pain: No COPD: No Cerebrovascular Accident: No Diminished Hearing: No Deep Vein Thrombosis: Yes (HX BILATERAL ARMS. ) Endocrine: No Gastrointestinal Disorders: No Genitourinary: No Headaches: Yes Hypertension: Yes Immune Disorder: No Implanted Vascular Access Dvce: No Musculoskeletal: Yes (deteriorating spine) Neurologic: No Psychiatric: No Reproductive: Yes (menorrhagia) Respiratory: No Immunizations Current: No Migraines: Yes Radiation Therapy: No Seizures: No Sleep Apnea: No ?: Not Menopausal: Yes : 8 Para: 4 : 4 Ectopic : No Ovarian Cysts: Yes (fibroids on uterus) Dilation and Curettage (D&C): No Tubal Ligation: Yes (2000) Past Surgical History Abdominal Surgery: No AICD: No Cardiac Surgery: No Section: No Ear Surgery: No Endocrine Surgery: No Eye Surgery: No Genitourinary Surgery: No Gynecologic Surgery: Yes Hysterectomy: No Neurologic Surgery: No Oral Surgery: Yes Thoracic Surgery: No Tonsillectomy: Yes (1977) Other Surgery: Yes (Jn angina, tubal ligation, tonsilectomy) Social History Alcohol Use: Yes (WEEKLY) Tobacco Use: Yes ( 1/2 PPD) Substance Use: No Allergies-Medications (Allergen,Severity, Reaction): Coded Allergies: cat dander (Unverified Allergy, Severe, Itching, 03/24/17) codeine (Unverified Allergy, Severe, Twitching, 03/24/17) hydrocodone (Unverified Allergy, Intermediate, itching, 03/24/17) Reported Meds & Prescriptions Reported Meds & Active Scripts Active Phenergan (Promethazine HCl) 25 Mg Tablet 25 Mg PO Q6H PRN Tramadol (Tramadol HCl) 50 Mg Tab 50 Mg PO Q4H PRN Oxycodone-Acetaminophen 10-325 mg Tab 1 Tab PO Q6HR PRN Hydralazine HCl 25 Mg Tablet 25 Mg PO Q8HR Amlodipine (Amlodipine Besylate) 10 Mg Tab 10 Mg PO DAILY Eliquis (Apixaban) 5 Mg Tab 5 Mg PO BID Reported Ferrous Sulfate DR (Ferrous Sulfate) 324 Mg Tabdr 325 Mg PO DAILY Review of Systems Except as stated in HPI: all other systems reviewed are Neg Physical Exam Narrative GENERAL: 6-year-old female pleasant well-nourished well-developed mild distress secondary to pain SKIN: Focused skin assessment warm/dry. HEAD: Atraumatic. Normocephalic. EYES: Pupils equal and round. No scleral icterus. No injection or drainage. full range of motion intact. The gaze is conjugate. ENT: No nasal bleeding or discharge. Mucous membranes pink and moist. NECK: Trachea midline. No JVD. CARDIOVASCULAR: Regular rate and rhythm. No murmur appreciated. RESPIRATORY: No accessory muscle use. Clear to auscultation. Breath sounds equal bilaterally. GASTROINTESTINAL: Abdomen soft, non-tender, nondistended. Hepatic and splenic margins not palpable. MUSCULOSKELETAL: No obvious deformities. No clubbing. No cyanosis. No edema. NEUROLOGICAL: Awake and alert. No obvious cranial nerve deficits. Motor grossly within normal limits. Normal speech. PSYCHIATRIC: Appropriate mood and affect; insight and judgment normal. Data Data Last Documented VS Vital Signs Date Time Temp Pulse Resp B/P (MAP) Pulse Ox O2 Delivery O2 Flow Rate FiO2 03/24/17 12:34 100 Room Air 03/24/17 11:53 98.2 78 14 Vital signs reviewed Vital Signs Date Time Temp Pulse Resp B/P (MAP) Pulse Ox O2 Delivery O2 Flow Rate FiO2 03/24/17 12:34 100 Room Air 03/24/17 11:53 98.2 78 14 165/95 (118) 100 Orders Orders Ecg Monitoring (03/24/17 12:21) Iv Access Insert/Monitor (03/24/17 12:21) Oximetry (03/24/17 12:21) Sodium Chloride 0.9% Flush (Ns Flush) (03/24/17 12:30) Acetaminophen (Tylenol) (03/24/17 12:30) Prochlorperazine Inj (Compazine Inj) (03/24/17 12:30) Diphenhydramine Inj (Benadryl Inj) (03/24/17 12:30) Sodium Chlor 0.9% 1000 Ml Inj (Ns 1000 M (03/24/17 12:21) Ed Discharge Order (03/24/17 14:23) MDM Medical Decision Making Medical Screen Exam Complete: Yes Emergency Medical Condition: Yes Medical Record Reviewed: Yes Differential Diagnosis migraine, subarachnoid hemorrhage, aneurysm, meningitis, cerebrovascular thrombosis Narrative Course abortive therapy given with excellent effect. Patient ambulatory to the bathroom twice 30 minutes prior to discharge the patient reassessed with report of resolution of pain Diagnosis Primary Impression: Cephalgia Qualified Codes: G44.89 - Other headache syndrome Referrals: Primary Care Physician 2 days Med/Other Pt SpecificInfo: Prescription(s) given Scripts Promethazine (Phenergan) 25 Mg Tablet 25 MG PO Q6H Y for HEADACHE, #10 TAB 0 Refills Prov: Tino Washburn MD 03/24/17 Disposition: 01 DISCHARGE HOME Condition: Stable Tino Washburn MD Mar 24, 2017 14:23
== END 2017-03-24 14:32 | disposition home or self-care (01) ==
LOC: NEPC 11:50
DX: G44.89 Other headache syndrome (principal); F17.200 Nicotine dependence, unspecified, uncomplicated; I10 Essential (primary) hypertension
CPT/HCPCS: 96374; 96375; 99283; J0780; J1200; J7030